=== PATIENT | female | born 1975 | race Caucasian/White ===

== ENCOUNTER 2017-01-10 23:23 | Emergency (ER) | payer OTHER ==
[~2017-01-10] VITALS: Ht 160 cm; Wt 126.9 kg
[~2017-01-10 23:23] MED LIST: ALUMSUS21 PO; METO-157 PO; PRLSR20 PO
[2017-01-10 23:26] VITALS: TEMP 36.5; Ht 160 cm; Wt 126.9 kg
[2017-01-10] MEDS ORDERED: METOCLOPRAMIDE HCL INJ 5 MG/ML 2 ML VIAL IV STA (23:50)
[2017-01-10] MEDS ORDERED: SODIUM CHLORIDE 0.9% 1000ML 1,000 ML IV STA (23:50)
[2017-01-10] MEDS ORDERED: FAMOTIDINE 20MG/5ML IV PUSH IV STA (23:50)
[2017-01-10] MEDS ORDERED: GLC/500 PO (23:52)
[2017-01-10] MEDS ORDERED: LACT1CAP6 PO (23:52)
--- NOTE | 2017-01-10 23:52 | EMERGENCY ROOM VISIT NOTE ---
History Report prepared by Yogesh: Vicky Thurman Under the Supervision of: Dr. Matt Spence M.D. First contact with patient: 23:30 Chief Complaint: ABDOMINAL PAIN Stated Complaint: STOMACH PAIN Nursing Triage Summary: pt c/o abd pain with burning in throat with n/v. History of Present Illness The patient is a 41 year old female who presents to the Emergency Room with complaints of persistent abdominal pain that started 2 days ago. The patient rates her pain 3/10 in severity. She states that she vomited and inhaled the vomit. She not is experiencing a burning in her lungs and stomach. She states she has a history of gastroparesis. Her GI doctor is Nubia Cox. The patient states she has not had a flare up in a long time. The patient is feeling nauseous. She denies any fever, chills, cough, shortness of breath, congestion, and urine or bowel changes. She denies any history of ulcers. The patient states she takes omeprazole every day. She also takes metformin to help regulate her menstrual cycle. Source of History: patient Onset: 2 hours ago Position: abdomen Symptom Intensity: 3/10 Quality: burning Timing: other (persistent) Associated Symptoms: + nausea, + vomiting, No fevers, No chills, No cough, No SOB, No diarrhea, No urinary symptoms Note: The patient denies any congestion. Review of Systems See HPI for pertinent positives and negatives. A total of ten systems were reviewed and were otherwise negative. Family History No pertinent family history Social History Smoking Status: Former Smoker Alcohol Use: occasionally Drug Use: none Marital Status: Housing Status: lives with family Current/Historical Medications Scheduled Lactobacillus (Probiotic), 1 CAP PO DAILY Metformin Hcl (Glucophage), 500 MG PO BID Omeprazole (Prilosec), 20 MG PO BID Scheduled PRN Aluminum Hydroxide-Mag Carb (Gaviscon), 1 DOSE PO QID PRN for epigastic distress Metoclopramide (Reglan), 10 MG PO Q6H PRN for Nausea Allergies Coded Allergies: No Known Allergies (Unverified , 01/10/17) Physical Exam Vital Signs Date Time Temp Pulse Resp B/P (MAP) Pulse Ox O2 Delivery O2 Flow Rate FiO2 01/11/17 02:09 90 18 133/81 100 01/10/17 23:26 36.5 103 18 167/99 97 Room Air Physical Exam GENERAL: Awake, alert, uncomfortable appearing, in no distress HENT: Normocephalic, atraumatic. Dry mucus membranes. EYES: Normal conjunctiva. Sclera non-icteric. NECK: Supple. No nuchal rigidity. FROM. No JVD. RESPIRATORY: Clear to auscultation. CARDIAC: Regular rate, normal rhythm. Extremities warm and well perfused. Pulses equal. ABDOMEN: Soft, non-distended. No tenderness to palpation. No rebound or guarding. No masses. Obese. RECTAL: Deferred. MUSCULOSKELETAL: Chest examination reveals no tenderness. The back is symmetrical on inspection without obvious abnormality. There is no CVA tenderness to palpation. No joint edema. LOWER EXTREMITIES: Calves are equal size bilaterally and non-tender. No edema. No discoloration. NEURO: Normal sensorium. No sensory or motor deficits noted. SKIN: No rash or jaundice noted. Medical Decision & Procedures ER Provider Diagnostic Interpretation: Radiology results as stated below per my review and radiologist interpretation: CHEST X-RAY: Normal mediastinal. No focal consolidation. Laboratory Results 01/11/17 00:00 Red Blood Count 4.35, Mean Corpuscular Volume 84.1, Mean Corpuscular Hemoglobin 27.8, Mean Corpuscular Hemoglobin Concent 33.1, Mean Platelet Volume 9.2, Neutrophils (%) (Auto) 59.5, Lymphocytes (%) (Auto) 32.4, Monocytes (%) (Auto) 5.9, Eosinophils (%) (Auto) 1.6, Basophils (%) (Auto) 0.4, Neutrophils # (Auto) 6.61, Lymphocytes # (Auto) 3.60, Monocytes # (Auto) 0.66, Eosinophils # (Auto) 0.18, Basophils # (Auto) 0.04 01/11/17 00:00 Test 01/10/17 00:00 01/11/17 00:00 01/11/17 01:13 Urine Color YELLOW Urine Appearance CLOUDY (CLEAR) Urine pH 6.0 (4.5-7.5) Urine Specific [place] 1.015 (1.000-1.030) Urine Protein NEG (NEG) Urine Glucose (UA) NEG (NEG) Urine Ketones NEG (NEG) Urine Occult Blood NEG (NEG) Urine Nitrite NEG (NEG) Urine Bilirubin NEG (NEG) Urine Urobilinogen NEG (NEG) Urine Leukocyte Esterase NEG (NEG) Urine WBC (Auto) 1-5 /hpf (0-5) Urine RBC (Auto) 0-4 /hpf (0-4) Urine Hyaline Casts (Auto) 1-5 /lpf (0-5) Urine Epithelial Cells (Auto) >30 /lpf (0-5) Urine Bacteria (Auto) 1+ (NEG) White Blood Count 11.11 K/uL (4.8-10.8) Red Blood Count 4.35 M/uL (4.2-5.4) Hemoglobin 12.1 g/dL (12.0-16.0) Hematocrit 36.6 % (37-47) Mean Corpuscular Volume 84.1 fL (80-100) Mean Corpuscular Hemoglobin 27.8 pg (25-34) Mean Corpuscular Hemoglobin Concent 33.1 g/dl (32-36) Platelet Count 324 K/uL (130-400) Mean Platelet Volume 9.2 fL (7.4-10.4) Neutrophils (%) (Auto) 59.5 % Lymphocytes (%) (Auto) 32.4 % Monocytes (%) (Auto) 5.9 % Eosinophils (%) (Auto) 1.6 % Basophils (%) (Auto) 0.4 % Neutrophils # (Auto) 6.61 K/uL (1.4-6.5) Lymphocytes # (Auto) 3.60 K/uL (1.2-3.4) Monocytes # (Auto) 0.66 K/uL (0.11-0.59) Eosinophils # (Auto) 0.18 K/uL (0-0.5) Basophils # (Auto) 0.04 K/uL (0-0.2) RDW Standard Deviation 46.7 fL (36.4-46.3) RDW Coefficient of Variation 15.1 % (11.5-14.5) Immature Granulocyte % (Auto) 0.2 % Immature Granulocyte # (Auto) 0.02 K/uL (0.00-0.02) Anion Gap 9.0 mmol/L (3-11) Est Creatinine Clear Calc Drug Dose 97.0 ml/min Estimated GFR () 81.6 Estimated GFR (Non- 70.4 BUN/Creatinine Ratio 14.4 (10-20) Calcium Level 8.8 mg/dl (8.5-10.1) Total Bilirubin 0.2 mg/dl (0.2-1) Direct Bilirubin < 0.1 mg/dl (0-0.2) Aspartate Amino Transf (AST/SGOT) 17 U/L (15-37) Alanine Aminotransferase (ALT/SGPT) 33 U/L (12-78) Alkaline Phosphatase 80 U/L (45-117) Total Protein 8.1 gm/dl (6.4-8.2) Albumin 3.7 gm/dl (3.4-5.0) Lipase 206 U/L (73-393) Urine Test NEG (NEG) Laboratory results reviewed by me Medications Administered Medications (Trade) Dose Ordered Sig/Abhijit Route Start Time Stop Time Status Last Admin Dose Admin Sodium Chloride 1,000 ml @ 999 mls/hr Q1H1M STAT IV 01/10/17 23:50 01/11/17 00:50 DC 01/11/17 00:07 999 MLS/HR Metoclopramide HCl (Reglan Inj) 10 mg NOW STAT IV 01/10/17 23:50 01/10/17 23:54 DC 01/11/17 00:07 10 MG Famotidine (Pepcid 20mg Iv Push) 20 mg ONE STAT IV 01/10/17 23:50 01/10/17 23:54 DC 01/11/17 00:07 20 MG Lidocaine HCl (Viscous Lidocaine 2% Soln) 20 ml STK-MED ONCE .ROUTE 01/11/17 01:25 01/11/17 01:26 DC 01/11/17 01:27 10 ML Al Hydroxide/Mg Hydroxide (Maalox Susp) 30 ml STK-MED ONCE .ROUTE 01/11/17 01:25 01/11/17 01:26 DC 01/11/17 01:27 30 ML ED Course 2330: The patient was evaluated in room C10. A complete history and physical exam was performed. 2350: Famotidine 20 mg IV, Reglan Inj 10 mg IV, Sodium Chloride 1000 ml @ 999 mls/hr IV. 0121: I reassessed the patient. I will administer fluids and Gi Cocktail. 0122: Gi Cocktail 24 ml PO. 0130: I reevaluated the patient. Discussed results and discharge instructions: She verbalized understanding and agreement. The patient is ready for discharge. Medical Decision I reviewed the patient's past medical history, medications, and the nursing notes as described above. Differential diagnosis includes but is not limited to: gastroparesis, gastritis , biliary ideology, aspiration, peptic ulcer. The patient is a 41 y/o woman with a pmhx of gastroparesis who presents to the ED with n/v and ?aspiration with burning in her throat per HPI. On arrival the patient appears uncomfortable but in NAD. Oropharynx is clear without edema or erythema. No stridor. Lungs CTAB. Abd soft nt/nd. CXR prelim interpretation without any gross infiltrates. Patient improved after IVF, zofran, pepcid, GI cocktail. Labs with WBC 11, nonspecific but otherwise unremarkable. Medication Reconcilliation Current Medication List: was personally reviewed by me Blood Pressure Screening Patient's blood pressure: Elevated blood pressure Blood pressure disposition: Elevated BP felt to be situational Impression Primary Impression: Nausea & vomiting Additional Impression: Gastroparesis Scribe Attestation The scribe's documentation has been prepared under my direction and personally reviewed by me in its entirety. I confirm that the note above accurately reflects all work, treatment, procedures, and medical decision making performed by me. Departure Information Dispostion Home / Self-Care Prescriptions Metoclopramide (Reglan) 10 Mg Tab 10 MG PO Q6H Y for Nausea, #6 TAB Prov: Matt Spence M.D. 01/11/17 Referrals Pratik Macias M.D. (PCP) Patient Instructions ED Nausea Vomiting, Gastroparesis, My [facility] Additional Instructions Please follow up with your primary care physician in the next 1-3 days for re- evaluation. Your symptoms were likely due to your gastroparesis and resolved with IV fluids and nausea medicine. Otherwise, your exam, chest xray, and lab results did not show signs of an emergent condition at this time. Symptoms of aspiration can sometimes be delayed however antibiotics are not recommended unless symptoms develop. If you begin to develop cough, congestion , fevers and chills do not hesitate to seek reevaluation. Reglan as needed for nausea. Return to the emergency department for worsening symptoms as described in the accompanying instructions. Problem Qualifiers
[2017-01-11 00:31] LABS: ALT/SGPT 33 U/L (12-78); BLOOD UREA NITROGEN 14 mg/dl (7-18); BUN/CREATININE RATIO 14.4 (10-20); CALCIUM 8.8 mg/dl (8.5-10.1); CARBON DIOXIDE 24 mmol/L (21-32); CHLORIDE 107 mmol/L (98-107); GLUCOSE 101 mg/dl (70-99); POTASSIUM 3.5 mmol/L (3.5-5.1); SODIUM 140 mmol/L (136-145)
[2017-01-11 00:34] LABS: ALKALINE PHOSPHATASE 80 U/L (45-117); AST/SGOT 17 U/L (15-37)
[2017-01-11 00:36] LABS: BASO % 0.4 %; BASO ABS # 0.04 K/uL (0-0.2); COMPLETE YES; EOS % 1.6 %; HEMATOCRIT 36.6 % (37-47); IG% 0.2 %; LYMPH % 32.4 %; MEAN CELL VOLUME 84.1 fL (80-100); MEAN CORPUSCULAR HEMOGLOBIN 27.8 pg (25-34); MEAN CORPUSCULAR HGB CONC 33.1 g/dl (32-36); MEAN PLATELET VOLUME 9.2 fL (7.4-10.4); MONO % 5.9 %; NEUT % 59.5 %; PLATELET COUNT 324 K/uL (130-400); RED BLOOD COUNT 4.35 M/uL (4.2-5.4); WHITE BLOOD COUNT 11.11 K/uL (4.8-10.8)
[2017-01-11 01:09] LABS: URINE APPEARANCE CLOUDY (CLEAR); URINE BILIRUBIN NEG (NEG); URINE COLOR YELLOW; URINE EPITHELIAL CELL AUTO >30 /lpf (0-5); URINE NITRITE NEG (NEG); URINE SPECIFIC GRAVITY 1.015 (1.000-1.030); UROBILINOGEN NEG (NEG); ZZUR CULT IF INDIC CLEAN CATCH YES
[2017-01-11 01:16] LABS: MANUAL MICROSCOPIC REQUIRED? NO; REVIEW REQ? NO
[2017-01-11] MEDS ORDERED: GI COCKTAIL PO STA (01:22)
[2017-01-11] MEDS ORDERED: ALUMINUM/MAGNESIUM SUSP 30 ML UDC ONE (01:25)
[2017-01-11] MEDS ORDERED: LIDOCAINE HCL 2% VISC SOLN 20 ML UDC ONE (01:25)
[2017-01-11] MEDS ORDERED: METO-157 PO (02:01)
[2017-01-11 02:09] VITALS: BP 133/81; PULSE 90; O2SAT 100
--- NOTE | 2017-01-11 06:56 | DIAGNOSTIC IMAGING REPORT ---
SINGLE VIEW CHEST CLINICAL HISTORY: Aspiration. FINDINGS: An AP, portable, upright chest radiograph is compared to study dated 03/08/2016. The examination is degraded by portable technique and patient rotation. The cardiomediastinal silhouette is unremarkable. The lungs and pleural spaces are clear. No pneumothorax is seen. The bony thorax is grossly intact. IMPRESSION: No active disease in the chest. Electronically signed by: Asher Toth M.D. 01/11/2017 6:55 AM Dictated Date/Time: 01/11/2017 6:54 AM
== END 2017-01-11 02:11 | disposition home or self-care (01) ==
LOC: C.EDB 23:23 → C.EDC 01-11 02:11
DX: K31.84 Gastroparesis (principal); Z87.891 Personal history of nicotine dependence; R03.0 Elevated blood-pressure reading, without diagnosis of hypertension

== ENCOUNTER 2018-11-15 21:57 | Observation (INO) ==
[2018-11-15 23:03] LABS: Basophils # (auto) 0.02 K/uL (0-0.2); Basophils % (auto) 0.2 %; Eosinophils # (auto) 0.13 K/uL (0-0.5); Eosinophils % (auto) 1.2 %; Hematocrit (blood only) 40.7 % (37-47); Immature Granulocytes # (auto) 0.03 K/uL (0.00-0.02); Immature Granulocytes % (auto) 0.3 %; Lymphocytes % (auto) 16.6 %; Mean Corpuscular Hgb Conc 34.4 g/dL (32-36); Mean Corpuscular Volume 87.5 fL (80-100); Mean Platelet Volume 10.2 fL (7.4-10.4); Monocytes # (auto) 0.66 K/uL (0.11-0.59); Monocytes % (auto) 6.1 %; Neutrophils # (auto) 8.18 K/uL (1.4-6.5); Neutrophils % (auto) 75.6 %; Platelet Count 287 K/uL (130-400); RDW Coefficient of Variation 14.4 % (11.5-14.5); RDW Standard Deviation 45.6 fL (36.4-46.3); Red Blood Count 4.65 M/uL (4.2-5.4); White Blood Count 10.82 K/uL (4.8-10.8)
[2018-11-15] MEDS ORDERED: ONDANSETRON INJ 2 MG/ML 2 ML VIAL IV STA ×2 (23:11→23:55)
[2018-11-15 23:15] LABS: INR 1.1 (0.9-1.1); Partial Thromboplastin Ratio 1.1; Partial Thromboplastin Time 28.6 Seconds (21.0-31.0); Prothrombin Time 10.9 Seconds (9.0-12.0)
[2018-11-15 23:21] LABS: Albumin Level 3.9 gm/dl (3.4-5.0); BUN Creatinine Ratio 12.4 (10-20); Blood Urea Nitrogen 12 mg/dl (7-18); Carbon Dioxide 27 mmol/L (21-32); Chloride 108 mmol/L (98-107); Est GFR (African American) 86.7; Est GFR (Non-African American) 74.8; Glucose 122 mg/dl (70-99); Potassium 3.6 mmol/L (3.5-5.1); Sodium 140 mmol/L (136-145)
[2018-11-15 23:27] LABS: Alanine Aminotransferase 76 U/L (12-78); Albumin Globulin Ratio 0.9 (0.9-2); Alkaline Phosphatase 125 U/L (45-117); Aspartate Aminotransferase 44 U/L (15-37); Bilirubin,Total 1.1 mg/dl (0.2-1); Globulin 4.4 gm/dl (2.5-4.0); Total Protein 8.3 gm/dl (6.4-8.2); Troponin I < 0.015 ng/ml (0-0.045)
[2018-11-15] MEDS ORDERED: SODIUM CHLORIDE 0.9% 1000ML 1,000 ML IV SCH (23:45)
[2018-11-15] MEDS ORDERED: MoRPHine SULFATE 10 MG/ML CARP/VIAL IV STA (23:55)
[2018-11-16] MEDS ORDERED: fentaNYL citrate 100 MCG/2 ML VIAL IV STA (01:21)
[2018-11-16] MEDS ORDERED: HYDROCODONE/ACETAMOPHEN 5/325MG TAB PO STA (01:21)
--- NOTE | 2018-11-16 01:44 | Emergency Department Note ---
Entered by Abby Sears acting as a scribe for Margot Anand DO History of Present Illness General Chief complaint: Chest Pain Stated complaint: EPIGASTIC PAIN, CHEST PAIN, BAND AROUND CHEST Time Seen by Provider: 11/15/18 23:49 Source: patient History of Present Illness Onset (ago): hour(s) 7 Location: abdomen (upper) Radiation: back and other (chest; right shoulder ) Pain Consistency: + other (persistent ) Maximum Pain Intensity: 9 Quality: + other (tightness ) Associated symptoms: + nausea/vomiting and + other (positive bloated; negative trouble with urination; negative difficulty with bowel movements or passing gas; negative dizziness; negative lightheadedness); no fever/chills and no shortness of breath The patient is a 43 year old female with PMHx of gastroparesis, gallstones, and acid reflux who presents to the Emergency Room with complaints of persistent upper abdominal pain that began at about 1700, about 7 hours prior to arrival. She describes her pain as tightness. The patient states that her pain radiates up the center of her chest, to her right shoulder, and around to her back. She states that this pain began suddenly, and reports nausea and vomiting during this time. She states that she ate dinner tonight, but states that the food did not exacerbate her pain. The patient states that she it feels as though she is b loated. She denies trouble with urination, difficulty with bowel movements or passing gas, fever, chills, shortness of breath, dizziness, and lightheadedness. The patient states that she has a history of gastrointestinal issues, and states that she takes Prilosec twice a day. The patient denies recent diet changes and being around anyone else that was sick with similar symptoms. The patient states that she recently had a colonoscopy and endoscopy in June that was normal. No recent increase in heartburn. She denies any family history of gallbladder issues, but states that she has a family history of heart problems. Home Medications Home Medications Medication Instructions Recorded Confirmed Type Probiotic and Acidophilus 1 cap PO QAM 06/14/18 11/16/18 History metformin 500 mg PO BID 06/14/18 11/16/18 History metoclopramide HCl [Reglan] 10 mg PO DAILY PRN 06/14/18 11/16/18 History omeprazole 20 mg PO BID 06/14/18 11/16/18 History ondansetron 4 mg PO Q8H PRN 06/14/18 11/16/18 History sennosides [senna] 1 - 2 tab PO DAILY PRN 06/14/18 11/16/18 History docusate sodium [Colace] 100 mg PO DAILY 11/16/18 11/16/18 History ferrous sulfate 325 mg PO DAILY 11/16/18 11/16/18 History propranolol 20 mg PO BID 11/16/18 11/16/18 History oxycodone-acetaminophen 1 tab PO Q4H PRN #18 tab 11/17/18 Rx Allergies Allergy/AdvReac Type Severity Reaction Status Date / Time No Known Allergies Allergy Verified 06/23/18 10:59 Past Med/Surg History Medical History SVT (supraventricular tachycardia) Anxiety no meds Chronic back pain GERD (gastroesophageal reflux disease) Gastroparesis Obesity, morbid, BMI 50 or higher PCOS (polycystic ovarian syndrome) reason for metformin Surgical History History of tooth extraction History of wisdom tooth extraction under local Family History Father Family history of diabetes mellitus Other No family history of adverse response to anesthesia Social History Preferred Language: Kazakh Communication Ability: Effective Psychiatric Aide Instructor Required: No Beliefs That Will Affect Care: None Current Living Situation: Spouse Current Living Situation Comment: Home with spouse Other Information That Helps Us Care for You: No Feels Safe at Home: Yes Safety Concerns: Feels Safe At This Time Smoking Status: Never smoker Do You Dip or Chew Tobacco: No ; Second Hand Exposure: No ; Tobacco Cessation Education Requested by Patient: No Hx Alcohol Use: No Hx Substance Use: No Review of Systems See HPI for pertinent positives & negatives. and A total of 10 systems reviewed and were otherwise negative Physical Exam Vital Signs Vital Signs - 24 hr 11/15/18 22:05 11/15/18 22:49 11/15/18 23:00 Temperature 97.9 F Temperature Source Oral Sepsis Recent Fever Within 48 Hours No Sepsis Action Taken by Nursing No Action Required Pulse Rate 77 74 Pulse Rate [Apical] Pulse Rate from SpO2 Sensor 73 Respiratory Rate 21 20 Respiratory Effort / Characteristics Respiratory Depth Blood Pressure 126/80 121/80 Blood Pressure [Left Arm] Blood Pressure Mean 95 93 Blood Pressure Mean [Left Arm] Blood Pressure Position Sitting Pulse Oximetry 97 97 Oxygen Delivery Method Room Air Room Air 11/15/18 23:12 11/15/18 23:18 11/15/18 23:30 Temperature Temperature Source Sepsis Recent Fever Within 48 Hours Sepsis Action Taken by Nursing Pulse Rate 78 Pulse Rate [Apical] 76 Pulse Rate from SpO2 Sensor 78 Respiratory Rate 12 14 Respiratory Effort / Characteristics Non-Labored Respiratory Depth Normal Blood Pressure 126/69 Blood Pressure [Left Arm] 121/80 Blood Pressure Mean 88 Blood Pressure Mean [Left Arm] 93 Blood Pressure Position Pulse Oximetry 99 97 98 Oxygen Delivery Method Room Air Room Air 11/16/18 00:00 11/16/18 00:47 11/16/18 01:00 Temperature Temperature Source Sepsis Recent Fever Within 48 Hours Sepsis Action Taken by Nursing Pulse Rate 71 66 Pulse Rate [Apical] 66 Pulse Rate from SpO2 Sensor 72 67 Respiratory Rate 15 18 10 L Respiratory Effort / Characteristics Non-Labored Respiratory Depth Normal Blood Pressure 117/60 132/71 Blood Pressure [Left Arm] 125/73 Blood Pressure Mean 79 91 Blood Pressure Mean [Left Arm] 90 Blood Pressure Position Pulse Oximetry 97 94 96 Oxygen Delivery Method Room Air 11/16/18 01:30 Temperature Temperature Source Sepsis Recent Fever Within 48 Hours Sepsis Action Taken by Nursing Pulse Rate 68 Pulse Rate [Apical] Pulse Rate from SpO2 Sensor 69 Respiratory Rate 15 Respiratory Effort / Characteristics Respiratory Depth Blood Pressure 131/78 Blood Pressure [Left Arm] Blood Pressure Mean 95 Blood Pressure Mean [Left Arm] Blood Pressure Position Pulse Oximetry 97 Oxygen Delivery Method GENERAL: alert, uncomfortable appearing, well nourished, no distress, non-toxic EYE EXAM: normal conjunctiva, PERRL and EOM's grossly intact OROPHARYNX: no exudate, no erythema, lips, buccal mucosa, and tongue normal and mucous membranes are moist NECK: supple, no nuchal rigidity, no adenopathy, non-tender LUNGS: Clear to auscultation. No wheezes, rhonchi, rales. Normal chest wall mechanics HEART: no murmurs, S1 normal and S2 normal ABDOMEN: Epigastric tenderness to palpation. Abdomen soft, normo-active bowel sounds, no masses, no rebound or guarding. BACK: Back is symmetrical on inspection and there is no deformity, no midline tenderness, no CVA tenderness. SKIN: no rashes and no bruising UPPER EXTREMITIES: upper extremities are grossly normal. FROM, nml pulses b/l. LOWER EXTREMITIES: No pitting edema. FROM, nml pulses b/l. NEURO EXAM: Normal sensorium, cranial nerves II-XII grossly intact, normal speech, no gross weakness of arms, no gross weakness of legs. Course 2351: Past medical records reviewed. The patient was evaluated in room B2. A complete history and physical exam was performed. 0122: Upon reevaluation, the patient states that her pain is better but is not completely relieved. The patient was updated and we will see if we can control her symptoms on oral medications. 0215: Upon reevaluation, the patient is experiencing worsening pain. 0219: I discussed the case with Dr. Dee-General Surgery who accepts the patient for further evaluation and surgery. Administered Medications Docusate Sodium (Colace) 100 mg PO DAILY JUAN Stop: 12/17/18 08:59 Last Admin: 11/16/18 21:16 Dose: 100 mg Documented by: [id number] Ferrous Sulfate (Feosol) 325 mg PO DAILY JUAN Stop: 12/17/18 08:59 Last Admin: 11/17/18 08:44 Dose: Not Given Documented by: [id number] Hydromorphone HCl (Dilaudid) 0.5 mg IV Q2H PRN PRN Reason: Pain Stop: 11/30/18 03:40 Last Admin: 11/17/18 08:18 Dose: 0.5 mg Documented by: [id number] Admin: 11/17/18 01:43 Dose: 0.5 mg Documented by: [id number] Admin: 11/16/18 21:12 Dose: 0.5 mg Documented by: [id number] Sodium Chloride (Nss 1000ml) 1,000 mls @ 100 mls/hr IV .Q10H JUAN Stop: 12/16/18 03:40 Last Admin: 11/17/18 01:43 Dose: 100 mls/hr Documented by: [id number] Infusion: 11/17/18 01:43 Dose: 100 mls/hr Documented by: [id number] Admin: 11/16/18 17:24 Dose: 100 mls/hr Documented by: [id number] Infusion: 11/16/18 13:59 Dose: 100 mls/hr Documented by: [id number] Admin: 11/16/18 03:59 Dose: 100 mls/hr Documented by: [id number] Promethazine HCl 12.5 mg/ (Sodium Chloride) 50.5 mls @ 202 mls/hr IV Q6H PRN PRN Reason: Nausea And Vomiting Stop: 12/16/18 09:07 Last Infusion: 11/16/18 15:22 Dose: 0 mls/hr Documented by: [id number] Admin: 11/16/18 15:07 Dose: 202 mls/hr Documented by: [id number] Infusion: 11/16/18 09:31 Dose: 0 mls/hr Documented by: [id number] Admin: 11/16/18 09:16 Dose: 202 mls/hr Documented by: [id number] Lactobacillus Acidophilus (Floranex) 4 tab PO DAILY JUAN Stop: 12/17/18 08:59 Last Admin: 11/17/18 08:44 Dose: Not Given Documented by: [id number] Ondansetron HCl (Zofran) 4 mg IV Q6H PRN PRN Reason: Nausea Stop: 12/16/18 03:40 Last Admin: 11/17/18 08:18 Dose: 4 mg Documented by: [id number] Admin: 11/17/18 01:43 Dose: 4 mg Documented by: [id number] Admin: 11/16/18 19:48 Dose: 4 mg Documented by: [id number] Admin: 11/16/18 03:59 Dose: 4 mg Documented by: [id number] Oxycodone/Acetaminophen (Percocet 5mg/325mg) 1 tab PO Q4H PRN PRN Reason: Pain Stop: 11/30/18 16:21 Last Admin: 11/17/18 06:38 Dose: 1 tab Documented by: [id number] Admin: 11/16/18 19:48 Dose: 1 tab Documented by: [id number] Pantoprazole Sodium (Protonix) 40 mg PO BID JUAN Stop: 12/16/18 20:59 Last Admin: 11/17/18 08:44 Dose: Not Given Documented by: [id number] Admin: 11/16/18 21:11 Dose: 40 mg Documented by: [id number] Propranolol HCl (Inderal) 20 mg PO BID JUAN Stop: 12/16/18 20:59 Last Admin: 11/17/18 08:44 Dose: Not Given Documented by: [id number] Admin: 11/16/18 21:11 Dose: 20 mg Documented by: [id number] Sennosides (Senokot) 8.6 mg PO DAILY PRN PRN Reason: Constipation Stop: 12/16/18 16:21 Last Admin: 11/16/18 21:16 Dose: 8.6 mg Documented by: [id number] Discontinued Medications Hydrocodone Bitart/Acetaminophen ([place] 5/325) 1 tab PO NOW STA Stop: 11/16/18 01:22 Last Admin: 11/16/18 01:37 Dose: 1 tab Documented by: [id number] Bacitracin (Bacitracin) Confirm Administered Dose 45 appln .ROUTE .STK-MED ONE Stop: 11/16/18 11:34 Last Admin: 11/16/18 13:58 Dose: 45 appln Documented by: [id number] Bupivacaine HCl (Marcaine 0.5% Mpf) Confirm Administered Dose 30 ml .ROUTE .STK- MED ONE Stop: 11/16/18 11:34 Last Admin: 11/16/18 14:01 Dose: 20 ml Documented by: [id number] Cefazolin Sodium (Ancef 3000mg) Confirm Administered Dose 3,000 mg IV .STK-MED ONE Stop: 11/16/18 12:05 Last Admin: 11/16/18 12:20 Dose: Not Given Documented by: [id number] Fentanyl Citrate (Fentanyl Citrate) 100 mcg IV NOW STA Stop: 11/16/18 01:22 Last Admin: 11/16/18 01:40 Dose: Not Given Documented by: [id number] Fentanyl Citrate (Fentanyl Citrate) 50 mcg IV Q5M PRN PRN Reason: PACU Use Only-Pain Stop: 11/16/18 17:22 Last Admin: 11/16/18 14:45 Dose: 50 mcg Documented by: [id number] Admin: 11/16/18 14:40 Dose: 50 mcg Documented by: [id number] Hydromorphone HCl (Dilaudid) 0.25 mg IV Q5M PRN PRN Reason: PACU Use Only-Pain Stop: 11/16/18 17:22 Last Admin: 11/16/18 15:07 Dose: 0.25 mg Documented by: [id number] Admin: 11/16/18 15:02 Dose: 0.25 mg Documented by: [id number] Admin: 11/16/18 14:57 Dose: 0.25 mg Documented by: [id number] Admin: 11/16/18 14:52 Dose: 0.25 mg Documented by: [id number] Sodium Chloride (Nss 1000ml) 1,000 mls @ 125 mls/hr IV .Q8H JUAN Stop: 12/15/18 23:44 Last Infusion: 11/16/18 02:04 Dose: 0 mls/hr Documented by: [id number] Admin: 11/16/18 00:09 Dose: 125 mls/hr Documented by: [id number] Famotidine 20 mg/ Syringe 5 mls @ 2.5 mls/min IV DAILY JUAN Stop: 12/16/18 08:59 Last Admin: 11/16/18 08:44 Dose: 2.5 mls/min Documented by: [id number] Cefazolin Sodium (Ancef 3000mg) 72.5 mls @ 130 mls/hr IV PREOP ONE Stop: 11/16/18 12:26 Last Infusion: 11/16/18 12:49 Dose: 0 mls/hr Documented by: [id number] Admin: 11/16/18 12:15 Dose: 130 mls/hr Documented by: [id number] Cefazolin Sodium (Ancef 3000mg) 72.5 mls @ 130 mls/hr IV PREOP ONE Stop: 11/16/18 12:49 Last Admin: 11/16/18 12:19 Dose: Not Given Documented by: [id number] Ketorolac Tromethamine (Toradol (For Or Use Only)) 30 mg IV ONE ONE Stop: 11/16/18 15:24 Last Admin: 11/16/18 15:29 Dose: 30 mg Documented by: [id number] Ketorolac Tromethamine (Toradol) Confirm Administered Dose 30 mg .ROUTE .STK-MED ONE Stop: 11/16/18 15:28 Last Admin: 11/16/18 16:26 Dose: Not Given Documented by: [id number] Lidocaine HCl (Xylocaine 1% (Local)) Confirm Administered Dose 20 ml .ROUTE .STK-MED ONE Stop: 11/16/18 11:34 Last Admin: 11/16/18 14:02 Dose: 20 ml Documented by: [id number] Morphine Sulfate (Morphine Sulfate) 6 mg IV NOW STA Stop: 11/15/18 23:56 Last Admin: 11/16/18 00:08 Dose: 6 mg Documented by: [id number] Morphine Sulfate (Morphine Sulfate) 6 mg IV NOW STA Stop: 11/16/18 02:16 Last Admin: 11/16/18 02:19 Dose: 6 mg Documented by: [id number] Ondansetron HCl (Zofran) 4 mg IV NOW STA Stop: 11/15/18 23:12 Last Admin: 11/15/18 23:15 Dose: 4 mg Documented by: [id number] Ondansetron HCl (Zofran) 4 mg IV NOW STA Stop: 11/15/18 23:56 Last Admin: 11/16/18 00:08 Dose: 4 mg Documented by: [id number] Ondansetron HCl (Zofran) 4 mg IV ONCE PRN PRN Reason: PACU Use Only-Nausea/Vomiting Stop: 11/16/18 17:22 Last Admin: 11/16/18 14:40 Dose: 4 mg Documented by: [id number] Medical Decision Making Differential Diagnosis Differential diagnoses includes but is not limited to gastritis, peptic ulcer disease, GERD, gallbladder disease, pancreatitis, small bowel obstruction, acute coronary syndrome, pericarditis, ischemic bowel, irritable bowel disease, irritable bowel syndrome, appendicitis, diverticulitis, malignancy, hernia, urinary tract infection, torsion, /ectopic , perforation, trauma, infectious. Medical Records Attestation: I reviewed the patient's medical records. Home Medications Current Medication List: was personally reviewed by me Laboratory Data Attestation: I reviewed the patient's lab results. Result diagrams: 11/17/18 06:19 11/17/18 06:19 Lab Results 11/15/18 11/15/18 11/15/18 Range/Units 22:50 22:50 22:50 WBC 10.82 H (4.8-10.8) K/uL RBC 4.65 (4.2-5.4) M/uL Hgb 14.0 (12.0-16.0) g/dL Hct 40.7 (37-47) % MCV 87.5 (80-100) fL MCH 30.1 (25-34) pg MCHC 34.4 (32-36) g/dL RDW Std Deviation 45.6 (36.4-46.3) fL RDW Coeff of Saige 14.4 (11.5-14.5) % Plt Count 287 (130-400) K/uL MPV 10.2 (7.4-10.4) fL Immature Gran % (Auto) 0.3 % Neut % (Auto) 75.6 % Lymph % (Auto) 16.6 % [place] % (Auto) 6.1 % Eos % (Auto) 1.2 % Baso % (Auto) 0.2 % Immature Gran # (Auto) 0.03 H (0.00-0.02) K/uL Neut # (Auto) 8.18 H (1.4-6.5) K/uL Lymph # (Auto) 1.80 (1.2-3.4) K/uL [place] # (Auto) 0.66 H (0.11-0.59) K/uL Eos # (Auto) 0.13 (0-0.5) K/uL Baso # (Auto) 0.02 (0-0.2) K/uL PT 10.9 (9.0-12.0) Seconds INR 1.1 (0.9-1.1) APTT 28.6 (21.0-31.0) Seconds PTT Ratio 1.1 D-Dimer (0-500) ug/L FEU Sodium 140 (136-145) mmol/L Potassium 3.6 (3.5-5.1) mmol/L Chloride 108 H (98-107) mmol/L Carbon Dioxide 27 (21-32) mmol/L Anion Gap 4.0 (3-11) BUN 12 (7-18) mg/dl Creatinine 0.94 (0.6-1.2) mg/dl Est Cr Clr Drug Dosing 102.0 ml/min Est GFR ( Amer) 86.7 Est GFR (Non-Af Amer) 74.8 BUN/Creatinine Ratio 12.4 (10-20) Glucose 122 H (70-99) mg/dl Calcium 9.0 (8.5-10.1) mg/dl Total Bilirubin 1.1 H (0.2-1) mg/dl AST 44 H (15-37) U/L ALT 76 (12-78) U/L Alkaline Phosphatase 125 H (45-117) U/L Troponin I < 0.015 (0-0.045) ng/ml Total Protein 8.3 H (6.4-8.2) gm/dl Albumin 3.9 (3.4-5.0) gm/dl Globulin 4.4 H (2.5-4.0) gm/dl Albumin/Globulin Ratio 0.9 (0.9-2) Lipase 137 (73-393) U/L 11/15/18 Range/Units 22:50 WBC (4.8-10.8) K/uL RBC (4.2-5.4) M/uL Hgb (12.0-16.0) g/dL Hct (37-47) % MCV (80-100) fL MCH (25-34) pg MCHC (32-36) g/dL RDW Std Deviation (36.4-46.3) fL RDW Coeff of Saige (11.5-14.5) % Plt Count (130-400) K/uL MPV (7.4-10.4) fL Immature Gran % (Auto) % Neut % (Auto) % Lymph % (Auto) % [place] % (Auto) % Eos % (Auto) % Baso % (Auto) % Immature Gran # (Auto) (0.00-0.02) K/uL Neut # (Auto) (1.4-6.5) K/uL Lymph # (Auto) (1.2-3.4) K/uL [place] # (Auto) (0.11-0.59) K/uL Eos # (Auto) (0-0.5) K/uL Baso # (Auto) (0-0.2) K/uL PT (9.0-12.0) Seconds INR (0.9-1.1) APTT (21.0-31.0) Seconds PTT Ratio D-Dimer 510 H* (0-500) ug/L FEU Sodium (136-145) mmol/L Potassium (3.5-5.1) mmol/L Chloride (98-107) mmol/L Carbon Dioxide (21-32) mmol/L Anion Gap (3-11) BUN (7-18) mg/dl Creatinine (0.6-1.2) mg/dl Est Cr Clr Drug Dosing ml/min Est GFR ( Amer) Est GFR (Non-Af Amer) BUN/Creatinine Ratio (10-20) Glucose (70-99) mg/dl Calcium (8.5-10.1) mg/dl Total Bilirubin (0.2-1) mg/dl AST (15-37) U/L ALT (12-78) U/L Alkaline Phosphatase (45-117) U/L Troponin I (0-0.045) ng/ml Total Protein (6.4-8.2) gm/dl Albumin (3.4-5.0) gm/dl Globulin (2.5-4.0) gm/dl Albumin/Globulin Ratio (0.9-2) Lipase (73-393) U/L Imaging Data Attestation: I personally reviewed and interpreted this imaging study as follows: My Impression: 1V CHEST X-RAY: No cardiomegaly, no effusions, no wide mediastinum, no focal consolidation, no acute pulmonary edema. Radiologist's Impression: Radiology results as stated below per my review and the radiologist's interpretation: US RUQ: Limited by body habitus. Pancreas obscured. Cholelithiasis along with possible sludge. Normal gallbladder wall thickness. Sonographic Camacho's sign could not be assessed secondary to pain medication. Visualized CBD normal caliber. Liver is prominent in size with increased echogenicity. Measures about 18 cm. Suspected liver cysts. Suspected complex cyst in the left hepatic lobe with central echogenicity similar in appearance to previous exam. Example image 1024 current exam versus image 2816 of prior. No right hydronephrosis. Radiologist: Herb Steven M.D. Study ready at 00:56 and initial results transmitted at 01:01. ECG Data Attestation: I personally reviewed and interpreted this ECG as follows: Indication: abdominal pain Rate (beats per minute): 66 Rhythm: sinus rhythm Findings: + other (normal axis; normal intervals); no PAC, no PVC, no ST depression, no ST elevation, no acute ischemic change and no ectopy Blood Pressure Blood Pressure Findings: Normal blood pressure MDM Narrative Patient here uncomfortable appearing and found to have cholelithiasis which is previously known. No evidence of acute cholecystitis on ultrasound. Patient's other labs reassuring, very mild elevation noted of LFTs, and white blood cell count top normal. We were unable to control patient's pain without the use of I V narcotics. Due to likely biliary colic and persistent pain, case discussed with general surgeon on-call for additional evaluation and management. I do not suspect ACS, PE, dissection, ascending cholangitis, perforation, GI bleed. Very slight elevation of d-dimer likely secondary to inflammatory changes of evolving cholecystitis. I do not suspect mesenteric ischemia, bowel obstruction, coliti s. Patient and were made aware of all results and were in agreement with plan. Impression & Plan Acute epigastric pain, Atypical chest pain, Cholelithiases, Biliary colic Discharge Plan Visit Data *Final* Discharge Date/Time: 11/16/18 03:31 Chief Complaint: Chest Pain Stated Complaint: EPIGASTIC PAIN, CHEST PAIN, BAND AROUND CHEST ED Provider: Margot Anand Discharge Problem: Acute epigastric pain, Atypical chest pain, Cholelithiases, Biliary colic Patient Disposition: Admitted As Inpatient Condition: Good Discharge Instructions Interventions: ED Discharge Assessment Last Done: 11/16/18 03:31 Discharge Problem: Cholelithiases Qualifiers: Cholelithiasis location: gallbladder Cholecystitis presence: without cholecystitis Biliary obstruction: without biliary obstruction Qualified Code(s): K80.20 - Calculus of gallbladder without cholecystitis without o bstruction The scribe's documentation has been prepared under my direction and personally reviewed by me in its entirety. I confirm that the note above accurately reflects all work, treatment, procedures, and medical decision making performed by me.
[2018-11-16 01:45] LABS: D Dimer 510 ug/L FEU (0-500)
[2018-11-16] MEDS ORDERED: MoRPHine SULFATE 10 MG/ML CARP/VIAL IV STA (02:15)
[2018-11-16] MEDS: SODIUM CHLORIDE 0.9% 1000ML 1,000 ML IV SCH ×2 (03:59→17:24)
[2018-11-16] MEDS: ONDANSETRON INJ 2 MG/ML 2 ML VIAL IV PRN ×2 (03:59→19:48)
--- NOTE | 2018-11-16 06:33 | XRay Report ---
XR chest 1V portable HISTORY: 43 years-old Female chest pain acute atypical chest pain COMPARISON: Chest radiograph 01/11/2017 and 03/08/2016 TECHNIQUE: Portable AP view of the chest FINDINGS: Cardiomediastinal and hilar silhouettes are within normal limits. There is no pneumothorax, pleural e ffusion, focal airspace consolidation or overt pulmonary edema. Small hiatal hernia. Bones appear rasta ssly intact. IMPRESSION: 1. No acute process. 2. Small hiatal hernia. The above report was generated using voice recognition software. It may contain grammatical, syntax o r spelling errors. Electronically signed by: Glenn Knight M.D. 11/16/2018 6:32 AM
--- NOTE | 2018-11-16 06:51 | Ultrasound Report ---
US gallbladder HISTORY: 43 years-old Female epigastric pain, known stones acute epigastric abdominal pain COMPARISON: Right upper quadrant abdominal ultrasound 03/08/2016 TECHNIQUE: Multiple real time sonographic images of the abdominal right upper quadrant were obtained assessing grayscale appearance and color flow FINDINGS: Study is limited secondary to patient body habitus and obscuring bowel gas. The visualized pancreas a ppears unremarkable. There are a few scattered hypoechoic foci throughout the liver suggestive of pro bable cysts. There is a 1.5 cm hypoechoic focus suggestive of probable cyst with calcified internal s eptation noted within the left hepatic lobe, unchanged. Increased echogenicity of the liver suggests hepatic steatosis. Mildly contracted gallbladder with gallbladder wall measuring in the upper limits of normal at 3 mm. Shadowing cholelithiasis with gallbladder sludge. No pericholecystic fluid. Sonogr aphic Camacho sign was unable to be assessed secondary to recent pain medication administered to the p atient. Normal common bile duct, 3 mm. Imaged right kidney is unremarkable without hydronephrosis. IMPRESSION: 1. Partially contracted gallbladder with cholelithiasis and gallbladder sludge. No definite sonograph ic evidence of acute cholecystitis. 2. No biliary ductal dilation. 3. Hepatic steatosis. The above report was generated using voice recognition software. It may contain grammatical, syntax o r spelling errors. Electronically signed by: Glenn Knight M.D. 11/16/2018 6:50 AM
[2018-11-16 07:19] LABS: Albumin Globulin Ratio 0.9 (0.9-2); Albumin Level 3.3 gm/dl (3.4-5.0); BUN Creatinine Ratio 10.8 (10-20); Bilirubin,Total 0.8 mg/dl (0.2-1); Calcium 8.1 mg/dl (8.5-10.1); Creatinine Clr Calc Pharmacy 117.9 ml/min; Est GFR (African American) 105.4; Est GFR (Non-African American) 90.9; Globulin 3.7 gm/dl (2.5-4.0); Potassium 4.2 mmol/L (3.5-5.1)
[2018-11-16] MEDS ORDERED: FAMOTIDINE 20 MG in SYRINGE 3 ML IV SCH (09:00)
--- NOTE | 2018-11-16 09:03 | History & Physical Report ---
Date of Service November 16, 2018 Assessment & Plan (1) Cholelithiases: This patient has right upper quadrant pain with cholelithiasis. There is also some epigastric component with nausea. Her bilirubin which was mildly elevated yesterday has returned back to normal but her AST and ALT are elevated. She has no risk factors for hepatitis. I feel that this patient most likely needs a cholecystectomy. I discussed that with her. I discussed the laparoscopic procedure and possible need to convert to an open procedure. We discussed some of the possible complications associated with this. I answered her questions. A family member was also present and I answered his questions as well. History of Present Illness Chief Complaint: Right upper quadrant pain Primary Care Provider: Pratik Macias MD This is a 43-year-old female who presented to the emergency room with pain centered in the epigastrium and right upper quadrant. It began at 5:00 last night. She had eaten just a small amount of baked potato. The pain is sharp. It radiates around to her back on occasion. Does not radiate into her shoulder. There are some reflux symptoms with it and she does have a history of reflux but she never has this kind of pain with it. She has nausea and had vomiting last night. She continues to have nausea. She has not had a change in her bowel habits. There is no melena or hematochezia. She denies dysuria and hematuria. She had one episode of discomfort like this about 5 years ago. At that time was also felt to be related to cholelithiasis but they did not opt for surgery at that time. Allergies Allergy/AdvReac Type Severity Reaction Status Date / Time No Known Allergies Allergy Verified 06/23/18 10:59 Home Medications Home Medications Medication Instructions Recorded Confirmed Type Probiotic and Acidophilus 1 cap PO QAM 06/14/18 11/16/18 History metformin 500 mg PO BID 06/14/18 11/16/18 History metoclopramide HCl [Reglan] 10 mg PO DAILY PRN 06/14/18 11/16/18 History omeprazole 20 mg PO BID 06/14/18 11/16/18 History ondansetron 4 mg PO Q8H PRN 06/14/18 11/16/18 History sennosides [senna] 1 - 2 tab PO DAILY PRN 06/14/18 11/16/18 History metoprolol succinate 12.5 mg PO BID 06/23/18 11/16/18 History docusate sodium [Colace] 100 mg PO DAILY 11/16/18 11/16/18 History ferrous sulfate 325 mg PO DAILY 11/16/18 11/16/18 History propranolol 20 mg PO BID 11/16/18 11/16/18 History Past Med/Surg History Medical History Anxiety no meds Chronic back pain GERD (gastroesophageal reflux disease) Gastroparesis Obesity, morbid, BMI 50 or higher PCOS (polycystic ovarian syndrome) reason for metformin Surgical History History of tooth extraction History of wisdom tooth extraction under local Family History Father Family history of diabetes mellitus Other No family history of adverse response to anesthesia Social History Preferred Language: [place] Communication Ability: Effective System Analyst Required: No Beliefs That Will Affect Care: None Current Living Situation: Spouse Current Living Situation Comment: Home with spouse Other Information That Helps Us Care for You: No Feels Safe at Home: Yes Safety Concerns: Feels Safe At This Time Smoking Status: Never smoker Do You Dip or Chew Tobacco: No ; Second Hand Exposure: No ; Tobacco Cessation Education Requested by Patient: No Hx Alcohol Use: No Hx Substance Use: No Review of Systems Review of Systems: All systems reviewed & are unremarkable except as noted in HPI & below Physical Exam Constitutional: + obese; no acute distress Neck: trachea midline Respiratory: normal respiratory effort, lungs clear to auscultation Cardiovascular: Rate/Rhythm: regular rate and regular rhythm Gastrointestinal (Abdomen): Inspection/Auscultation: abdomen not distended Percussion/Palpation: + abdomen tender (Mild tenderness to deep palpation in the right subcostal region) and abdomen soft Skin: no rashes, warm and dry Lymphatic: no cervical lymphadenopathy Results & Data Vital Signs (Past 12 Hours) Vital Signs Temp Pulse Pulse Pulse Resp BP BP 11/16/18 07:45 36.5 C 57 L 16 95/59 L 11/16/18 03:42 36.6 C 58 L 18 125/81 11/16/18 03:00 66 13 104/62 11/16/18 02:30 70 15 114/63 11/16/18 02:00 70 14 120/66 11/16/18 01:30 68 15 131/78 11/16/18 01:00 66 10 L 132/71 11/16/18 00:47 66 18 125/73 11/16/18 00:00 71 15 117/60 11/15/18 23:30 78 14 126/69 11/15/18 23:18 76 12 121/80 11/15/18 23:12 11/15/18 23:00 74 20 121/80 11/15/18 22:05 36.6 C 77 21 126/80 Pulse Ox 11/16/18 07:45 97 11/16/18 03:42 97 11/16/18 03:00 97 11/16/18 02:30 95 11/16/18 02:00 96 11/16/18 01:30 97 11/16/18 01:00 96 11/16/18 00:47 94 11/16/18 00:00 97 11/15/18 23:30 98 11/15/18 23:18 97 11/15/18 23:12 99 11/15/18 23:00 97 11/15/18 22:05 97 Laboratory Results 11/16/18 11/15/18 11/15/18 Range/Units 06:11 22:50 22:50 WBC (4.8-10.8) K/uL RBC (4.2-5.4) M/uL Hgb (12.0-16.0) g/dL Hct (37-47) % MCV (80-100) fL MCH (25-34) pg MCHC (32-36) g/dL RDW Std Deviation (36.4-46.3) fL RDW Coeff of Saige (11.5-14.5) % Plt Count (130-400) K/uL MPV (7.4-10.4) fL Immature Gran % (Auto) % Neut % (Auto) % Lymph % (Auto) % Pitkin % (Auto) % Eos % (Auto) % Baso % (Auto) % Immature Gran # (Auto) (0.00-0.02) K/uL Neut # (Auto) (1.4-6.5) K/uL Lymph # (Auto) (1.2-3.4) K/uL Pitkin # (Auto) (0.11-0.59) K/uL Eos # (Auto) (0-0.5) K/uL Baso # (Auto) (0-0.2) K/uL PT (9.0-12.0) Seconds INR (0.9-1.1) APTT (21.0-31.0) Seconds PTT Ratio D-Dimer 510 H* (0-500) ug/L FEU Sodium 143 140 (136-145) mmol/L Potassium 4.2 D 3.6 (3.5-5.1) mmol/L Chloride 113 H 108 H (98-107) mmol/L Carbon Dioxide 25 27 (21-32) mmol/L Anion Gap 5.0 4.0 (3-11) BUN 9 12 (7-18) mg/dl Creatinine 0.80 0.94 (0.6-1.2) mg/dl Est Cr Clr Drug Dosing 117.9 102.0 ml/min Est GFR ( Amer) 105.4 86.7 Est GFR (Non-Af Amer) 90.9 74.8 BUN/Creatinine Ratio 10.8 12.4 (10-20) Glucose 111 H 122 H (70-99) mg/dl Calcium 8.1 L 9.0 (8.5-10.1) mg/dl Total Bilirubin 0.8 1.1 H (0.2-1) mg/dl AST 247 H 44 H (15-37) U/L ALT 251 H 76 (12-78) U/L Alkaline Phosphatase 155 H 125 H (45-117) U/L Troponin I < 0.015 (0-0.045) ng/ml Total Protein 7.0 8.3 H (6.4-8.2) gm/dl Albumin 3.3 L 3.9 (3.4-5.0) gm/dl Globulin 3.7 4.4 H (2.5-4.0) gm/dl Albumin/Globulin Ratio 0.9 0.9 (0.9-2) Lipase 137 (73-393) U/L 11/15/18 11/15/18 Range/Units 22:50 22:50 WBC 10.82 H (4.8-10.8) K/uL RBC 4.65 (4.2-5.4) M/uL Hgb 14.0 (12.0-16.0) g/dL Hct 40.7 (37-47) % MCV 87.5 (80-100) fL MCH 30.1 (25-34) pg MCHC 34.4 (32-36) g/dL RDW Std Deviation 45.6 (36.4-46.3) fL RDW Coeff of Saige 14.4 (11.5-14.5) % Plt Count 287 (130-400) K/uL MPV 10.2 (7.4-10.4) fL Immature Gran % (Auto) 0.3 % Neut % (Auto) 75.6 % Lymph % (Auto) 16.6 % Pitkin % (Auto) 6.1 % Eos % (Auto) 1.2 % Baso % (Auto) 0.2 % Immature Gran # (Auto) 0.03 H (0.00-0.02) K/uL Neut # (Auto) 8.18 H (1.4-6.5) K/uL Lymph # (Auto) 1.80 (1.2-3.4) K/uL Pitkin # (Auto) 0.66 H (0.11-0.59) K/uL Eos # (Auto) 0.13 (0-0.5) K/uL Baso # (Auto) 0.02 (0-0.2) K/uL PT 10.9 (9.0-12.0) Seconds INR 1.1 (0.9-1.1) APTT 28.6 (21.0-31.0) Seconds PTT Ratio 1.1 D-Dimer (0-500) ug/L FEU Sodium (136-145) mmol/L Potassium (3.5-5.1) mmol/L Chloride (98-107) mmol/L Carbon Dioxide (21-32) mmol/L Anion Gap (3-11) BUN (7-18) mg/dl Creatinine (0.6-1.2) mg/dl Est Cr Clr Drug Dosing ml/min Est GFR ( Amer) Est GFR (Non-Af Amer) BUN/Creatinine Ratio (10-20) Glucose (70-99) mg/dl Calcium (8.5-10.1) mg/dl Total Bilirubin (0.2-1) mg/dl AST (15-37) U/L ALT (12-78) U/L Alkaline Phosphatase (45-117) U/L Troponin I (0-0.045) ng/ml Total Protein (6.4-8.2) gm/dl Albumin (3.4-5.0) gm/dl Globulin (2.5-4.0) gm/dl Albumin/Globulin Ratio (0.9-2) Lipase (73-393) U/L Code Status & VTE Plan VTE Prophylaxis Plan VTE Prophylaxis will be ordered: No (1) Cholelithiases Biliary obstruction: without biliary obstruction Cholecystitis presence: without cholecystitis Cholelithiasis location: gallbladder Qualified Code(s): K80.20 - Calculus of gallbladder without cholecystitis without obstruction
[2018-11-16] MEDS: PROMETHAZINE HCL 12.5 MG in SODIUM CHLORIDE 0.9% 50 ML IV PRN ×2 (09:16→15:07)
[2018-11-16] MEDS ORDERED: LIDOCAINE HCL 1% 20 ML VIAL ONE (11:33)
[2018-11-16] MEDS ORDERED: BUPIVACAINE 0.5 % 5 MG/1 ML MPF 30ML VIAL ONE (11:33)
[2018-11-16] MEDS ORDERED: MIDAZOLAM HCL 1 MG/ML 2ML VIAL ONE (11:33)
[2018-11-16] MEDS ORDERED: BACITRACIN OINT 15 GM TUBE ONE (11:33)
[2018-11-16] MEDS ORDERED: fentaNYL citrate 100 MCG/2 ML VIAL ONE ×2 (11:33→13:01)
--- NOTE | 2018-11-16 11:34 | Anesthesiology Consultation ---
Date of Service November 16, 2018 Assessment & Plan Chart Review Chart Review: Acceptable Risk for Surgery and Patient NOT seen in Pre Admission Testing Consults Requested none ASA ASA3 Proposed Anesthesia Anesthesia Type: General Risk / Benefits Reviewed With: PT / POA / Parent / Guardian, Accepts Plan and Informed Consent Obtained History Surgery Operation Date: 11/16/18 12:05 Proposed Procedures p Laparoscopic Cholecystectomy with No Cholangiogram - Chelle Mcguire MD Height/Weight Height: 5 ft 2 in Weight: 128.6 kg Allergies Allergy/AdvReac Type Severity Reaction Status Date / Time No Known Allergies Allergy Verified 06/23/18 10:59 Medications Home Medications Medication Instructions Recorded Confirmed Last Taken Probiotic and Acidophilus 1 cap PO QAM 06/14/18 11/16/18 05/24/18 metformin 500 mg PO BID 06/14/18 11/16/18 06/22/18 metoclopramide HCl [Reglan] 10 mg PO DAILY PRN 06/14/18 11/16/18 06/22/18 omeprazole 20 mg PO BID 06/14/18 11/16/18 06/23/18 ondansetron 4 mg PO Q8H PRN 06/14/18 11/16/18 06/22/18 sennosides [senna] 1 - 2 tab PO DAILY PRN 06/14/18 11/16/18 05/24/18 metoprolol succinate 12.5 mg PO BID 06/23/18 11/16/18 06/22/18 18:00 docusate sodium [Colace] 100 mg PO DAILY 11/16/18 11/16/18 Unknown ferrous sulfate 325 mg PO DAILY 11/16/18 11/16/18 Unknown propranolol 20 mg PO BID 11/16/18 11/16/18 Unknown Active Medications Generic Name Dose Route Start Last Admin Trade Name Freq PRN Reason Stop Dose Admin Sodium Chloride 1,000 mls @ 100 mls/hr 11/16/18 03:41 11/16/18 03:59 Nss 1000ml IV 12/16/18 03:40 100 mls/hr .Q10H JUAN Administration Famotidine 20 mg/ Syringe 5 mls @ 2.5 mls/min 11/16/18 09:00 11/16/18 08:44 IV 12/16/18 08:59 2.5 mls/min DAILY JUAN Administration Promethazine HCl 12.5 mg/ 50.5 mls @ 202 mls/hr 11/16/18 09:08 11/16/18 09:31 Sodium Chloride IV 12/16/18 09:07 Infused Q6H PRN Infusion Nausea And Vomiting Ondansetron HCl 4 mg 11/16/18 03:41 11/16/18 03:59 Zofran IV 12/16/18 03:40 4 mg Q6H PRN Administration Nausea NPO Date Last Intake of Fluids: 11/16/18 Time Last Intake of Fluids: 01:00 Last Intake of Fluids Comment: sip with pain medication in ED Date Last Intake of Solids: 11/15/18 Time Last Intake of Solids: 17:00 Past Medical History Medical History SVT (supraventricular tachycardia) Anxiety no meds Chronic back pain GERD (gastroesophageal reflux disease) Gastroparesis Obesity, morbid, BMI 50 or higher PCOS (polycystic ovarian syndrome) reason for metformin Exercise / Class Metabolic Activity II 4-5 Yardwork/Stairs/Walk up hill Negative for chest pain, positive for SOB Past Family History Family History Father Family history of diabetes mellitus Other No family history of adverse response to anesthesia Past Surgical History Surgical History History of tooth extraction History of wisdom tooth extraction under local Past Anesthesia History No Hx of Anesthesia Complications (Some reported obstruction during colonoscopy) History of PONV No Hx of PONV (Positive for family history) and No Hx of Motion Sickness Social History Smoking Status: Never smoker Do You Dip or Chew Tobacco: No Hx Alcohol Use: No Hx Substance Use: No substance use type: does not use Review of Systems Positive for hoarse voice Positive for GERD right now Physical Exam Vital Signs Last Vital Signs Temp 36.5 C 11/16/18 07:45 Pulse 57 L 11/16/18 07:45 Resp 16 11/16/18 07:45 BP 95/59 L 11/16/18 07:45 Pulse Ox 97 11/16/18 07:45 Constitutional + morbidly obese ENMT Mouth: no TMJ abnormality and oral opening not small Thyromental Distance: > or= 3.5 Finger Breadths Mallampati Class: II Neck normal visual inspection; neck extension not limited Respiratory normal respiratory effort Auscultation: lungs clear to auscultation bilaterally Cardiovascular Rate/Rhythm: regular rate and regular rhythm Heart Sounds: no murmur Neurologic moves all extremities Psychiatric Orientation: alert and oriented x 3 Testing Laboratory Results 11/15/18 22:50 11/16/18 06:11 PT 10.9 Seconds (9.0-12.0) 11/15/18 22:50 INR 1.1 (0.9-1.1) 11/15/18 22:50 APTT 28.6 Seconds (21.0-31.0) 11/15/18 22:50 Electrocardiogram Date: 11/15/18 Findings: + NSR @ (99)
--- NOTE | 2018-11-16 11:53 | History & Physical Bridge Note ---
Date of Service November 16, 2018 History & Physical Bridge Note I have examined the patient, reviewed the History & Physical and in the interval since the performance of the History & Physical I have noted the following changes of clinical significance: no changes noted. I did talk to pt and her about benefits, risks and alternatives of the surgery, [facility] risks - infection, bleeding, injury CBD, bowel, may need ERCP, incisional hernia, DVT, , pt and her understood,they agree with the surgery, I answered all questions,
[2018-11-16] MEDS ORDERED: CEFAZOLIN 3000MG/72.5 ML BAG IV ONE (12:04)
[2018-11-16] MEDS: CEFAZOLIN 3000MG 72.5 ML IV ONE (12:15)
[2018-11-16] MEDS ORDERED: CEFAZOLIN 3000MG 72.5 ML IV ONE (12:16)
[2018-11-16] MEDS ORDERED: ATROPINE SULFATE 0.1 MG/ML 10ML SYR IV PRN (12:22)
[2018-11-16] MEDS ORDERED: ONDANSETRON INJ 2 MG/ML 2 ML VIAL IV PRN (12:22)
[2018-11-16] MEDS ORDERED: ePHEDrine sulfate 50 MG/ML AMP IV PRN (12:22)
[2018-11-16] MEDS ORDERED: PROMETHAZINE HCL 12.5 MG in SODIUM CHLORIDE 0.9% 50 ML IV PRN (12:22)
[2018-11-16] MEDS ORDERED: SUCCINYLCHOLINE CHLORIDE 20 MG/ML 10 ML VIAL ONE (13:02)
[2018-11-16] MEDS ORDERED: DEXAMETHASONE SOD INJ 4 MG/ML VIAL ONE (13:02)
[2018-11-16] MEDS ORDERED: ONDANSETRON INJ 2 MG/ML 2 ML VIAL ONE (13:02)
[2018-11-16] MEDS ORDERED: LIDOCAINE HCL 2% 2 ML VIAL/AMP(20MG/ML) INFIL ONE (13:02)
[2018-11-16] MEDS ORDERED: PROPOFOL IV EMULSION 10 MG/ML 20 ML VIAL IV ONE (13:02)
[2018-11-16] MEDS ORDERED: ROCURONIUM BROMIDE 10 MG/ML 5 ML VIAL ONE (13:02)
--- NOTE | 2018-11-16 14:08 | Post Operative Brief Note ---
Immediate Post Op Note v1 Date of Surgery November 16, 2018 Pre & Post Diagnosis Operation Date: 11/16/18 12:05 Pre-Op Diagnosis: BILIARY COLIC, acute cholecystitis, cholelithiasis Post-Op Diagnosis: BILIARY COLIC, acute cholecystitis, cholelithiasis Procedure Operation Date: 11/16/18 12:05 Actual Procedures p Laparoscopic Cholecystectomy with No Cholangiogram - Chelle Mcguire MD Surgeon Chelle Mcguire MD Grievance And Appeals Coordinator CHESTER Dunn Estimated Blood Loss 20 Findings Consistent with Post-Op Diagnosis significant inflammation on gallbladder wall, Fluids 1200ml Specimens gallbladder Anesthesia Type General Complications none Disposition Accompanied Patient To Recovery: Yes Disposition: Recovery Room Overlapping Procedure I was immediately available: during the entire case.
[2018-11-16] MEDS: fentaNYL citrate 100 MCG/2 ML VIAL IV PRN ×2 (14:40→14:45)
[2018-11-16] MEDS: HYDROmorphone INJ 1 MG/ML SYRINGE IV PRN ×4 (14:52→15:07)
--- NOTE | 2018-11-16 15:14 | Anesthesiology Progress Note ---
Date of Service November 16, 2018 Anesthesia Post Procedure Vital Signs Vital Signs: Temp Pulse Pulse Pulse Resp BP BP 11/16/18 15:00 63 14 131/77 11/16/18 14:50 74 16 142/80 H 11/16/18 14:40 83 16 159/77 H 11/16/18 14:32 36.9 C 90 16 161/87 H 11/16/18 12:00 36.9 C 67 16 134/69 11/16/18 07:45 36.5 C 57 L 16 95/59 L 11/16/18 03:42 36.6 C 58 L 18 125/81 11/16/18 03:00 66 13 104/62 11/16/18 02:30 70 15 114/63 11/16/18 02:00 70 14 120/66 11/16/18 01:30 68 15 131/78 11/16/18 01:00 66 10 L 132/71 11/16/18 00:47 66 18 125/73 11/16/18 00:00 71 15 117/60 11/15/18 23:30 78 14 126/69 11/15/18 23:18 76 12 121/80 11/15/18 23:12 11/15/18 23:00 74 20 121/80 11/15/18 22:05 36.6 C 77 21 126/80 Pulse Ox 11/16/18 15:00 96 11/16/18 14:50 99 11/16/18 14:40 97 11/16/18 14:32 97 11/16/18 12:00 98 11/16/18 07:45 97 11/16/18 03:42 97 11/16/18 03:00 97 11/16/18 02:30 95 11/16/18 02:00 96 11/16/18 01:30 97 11/16/18 01:00 96 11/16/18 00:47 94 11/16/18 00:00 97 11/15/18 23:30 98 11/15/18 23:18 97 11/15/18 23:12 99 11/15/18 23:00 97 11/15/18 22:05 97 Pain Intensity Right Upper Medial Abdomen: Pain Intensity: 5 Transfer of Care Handoff Completed per policy Notes Mental Status: alert / awake / arousable and participated in evaluation Patient Amnestic to Procedure: Yes Nausea / Vomiting: improving with treatment Pain: improving with treatment Airway Patency, RR, SpO2: stable & adequate BP & HR: stable & adequate Hydration State: stable & adequate Anesthetic Complications: no major complications apparent and Pt Satisfied with anesthetic care
[2018-11-16] MEDS ORDERED: KETOROLAC (**for OR use only**) 30 MG/ML VIAL IV ONE (15:23)
[2018-11-16] MEDS ORDERED: KETOROLAC 30 MG/ML VIAL ONE (15:27)
[2018-11-16] MEDS ORDERED: ACETAMINOPHEN 325 MG TAB PO PRN (16:22)
[2018-11-16] MEDS ORDERED: METOCLOPRAMIDE HCL 10 MG TABLET PO PRN (16:22)
[2018-11-16] MEDS ORDERED: SENNA 8.6 MG TAB PO PRN (16:22)
[2018-11-16] MEDS ORDERED: ONDANSETRON 4 MG TAB PO PRN (16:22)
[2018-11-16] MEDS: OXYCODONE/ACETAMINOPHEN 5mg/325mg TAB PO PRN (19:48)
[2018-11-16] MEDS ORDERED: METOPROLOL SUCCINATE 12.5 MG PO SCH (21:00)
[2018-11-16] MEDS: PROPRANOLOL HCL 20 MG TAB PO SCH (21:11)
[2018-11-16] MEDS: PANTOprazole 40 MG TAB PO SCH (21:11)
[2018-11-16] MEDS: HYDROmorphone INJ 0.5 MG/0.5 ML SYR IV PRN (21:12)
[2018-11-16] MEDS: DOCUSATE SODIUM 100 MG CAP PO SCH (21:16)
--- NOTE | 2018-11-16 23:25 | Operative Report ---
DATE OF OPERATION: 11/16/2018 PREOPERATIVE DIAGNOSES: Acute cholecystitis, cholelithiasis. POSTOPERATIVE DIAGNOSES: Acute cholecystitis, cholelithiasis. OPERATION: Laparoscopic cholecystectomy. SURGEON: Chelle Mcguire M.D. TELECASTING ENGINEER: Rose Longoria PA-C ANESTHESIA: General. ESTIMATED BLOOD LOSS: About 20 mL. FINDINGS: Significant inflammation on the gallbladder wall, confirmed diagnosis of acute cholecystitis with cholelithiasis. COMPLICATIONS: None. INDICATIONS FOR THE PROCEDURE: This is a 43-year-old female who was admitted to hospital for acute cholecystitis with cholelithiasis. The patient will be required to do the laparoscopic cholecystectomy, possible open, possible cholangiogram. I did talk to the patient about the benefit and risk, alternate procedure. I indicated the risks may include but not limited such as bleeding, infection, injury to common bile duct, injury to the bowel, may need ERCP, DVT, incisional hernia, even . The patient understands. She signed informed consent and I answered all questions. DETAILS OF PROCEDURE: We brought the patient to the OR, put the patient in the supine position. The patient received SCD on bilateral legs to prevent DVT. Also, patient received 2 g Ancef IV for prophylactic antibiotic. The patient received general anesthesia without difficulty. The abdomen was appropriately draped in routine sterile fashion. After time-out, I injected local anesthesia by using 1% lidocaine mixed with 0.5% Marcaine just above umbilicus, then made a small incision just above umbilicus, opened fascia and opened peritoneum under direct vision, put a Jossue trocar in, connected to CO2 to create pneumoperitoneum. Flow rate at 6 liters per minute. Pressure not more than 14 mmHg. Once we got a nice pneumoperitoneum, we put the camera in, looked around the abdomen, shows normal finding on the liver. However, the gallbladder showed significant inflammation, gallbladder wall thickening, edema, confirmed diagnosis of acute cholecystitis. Then, we put another three 5-mm trocar on the right upper quadrant. Once all trocars in, we put a grasper to hold the base of gallbladder, put direction to the diaphragm, put another grasper to hold the pouch of gallbladder, put the latter to expunge the triangle of Calot. The cystic duct was identified and mobilized. Then, I put two 5-mm metal clip on the proximal cystic duct, one on the distal cystic duct and used the scissor transecting the cystic duct. Rechecked, no bile leak. The cystic artery was identified and mobilized. I put two 5-mm metal clips on the proximal cystic artery around the distal cystic duct artery and used a scissor for transection of cystic duct artery. Rechecked, no active bleeding. Then, we used the Bovie to take down from the liver bed. Rechecked, no active bleeding, no bile leak from the liver bed. Then, we removed gallbladder through the catch bag. Then, we reinserted Jossue trocar and connected to CO2 to create pneumoperitoneum. Again looked around the abdomen, showed no active bleeding, no bile leak from liver bed. Then, we removed all the trocars under direct vision. No active bleeding from the trocar sites. Pneumoperitoneum was released. I closed the umbilical incision, fascial layer by using #1 Vicryl [id number] x2, closed subcutaneous layer by using 2-0 Vicryl interruptedly, closed skin by using 4-0 Vicryl continuous running, closed another three 5-mm trocar site skin only by using 4-0 Vicryl. Then, we put the dressing on. The patient tolerated the procedure well. All instrument, needle, sponge count were correct x2 at the end of the case. The patient transferred to recovery room in stable condition. The specimen sent to pathology. After procedure, I did talk to the patient's about the OR finding and procedure we did, he understands. I attest to the content of the Intraoperative Record and any orders documented therein. Any exception s are noted below.
[2018-11-17] MEDS: ONDANSETRON INJ 2 MG/ML 2 ML VIAL IV PRN ×3 (01:43→17:55)
[2018-11-17] MEDS: SODIUM CHLORIDE 0.9% 1000ML 1,000 ML IV SCH ×3 (01:43→20:02)
[2018-11-17] MEDS: HYDROmorphone INJ 0.5 MG/0.5 ML SYR IV PRN ×5 (01:43→23:38)
[2018-11-17] MEDS: OXYCODONE/ACETAMINOPHEN 5mg/325mg TAB PO PRN ×2 (06:38→19:56)
[2018-11-17 07:10] LABS: Basophils # (auto) 0.01 K/uL (0-0.2); Basophils % (auto) 0.1 %; Hematocrit (blood only) 36.2 % (37-47); Hemoglobin 11.7 g/dL (12.0-16.0); Immature Granulocytes # (auto) 0.02 K/uL (0.00-0.02); Immature Granulocytes % (auto) 0.2 %; Lymphocytes % (auto) 19.3 %; Mean Corpuscular Hgb Conc 32.3 g/dL (32-36); Mean Corpuscular Volume 91.2 fL (80-100); Mean Platelet Volume 10.5 fL (7.4-10.4); Monocytes # (auto) 0.53 K/uL (0.11-0.59); Monocytes % (auto) 5.1 %; Neutrophils # (auto) 7.79 K/uL (1.4-6.5); Neutrophils % (auto) 75.3 %; Platelet Count 285 K/uL (130-400); RDW Coefficient of Variation 14.8 % (11.5-14.5); RDW Standard Deviation 49.5 fL (36.4-46.3); Red Blood Count 3.97 M/uL (4.2-5.4); White Blood Count 10.35 K/uL (4.8-10.8)
[2018-11-17 07:19] LABS: Albumin Level 3.2 gm/dl (3.4-5.0); Calcium 8.2 mg/dl (8.5-10.1); Creatinine Clr Calc Pharmacy 98.2 ml/min; Est GFR (African American) 84.5; Est GFR (Non-African American) 72.9; Potassium 3.8 mmol/L (3.5-5.1)
[2018-11-17 07:21] LABS: Albumin Globulin Ratio 0.8 (0.9-2); Bilirubin,Total 1.3 mg/dl (0.2-1); Globulin 3.8 gm/dl (2.5-4.0)
--- NOTE | 2018-11-17 08:12 | Anesthesiology Progress Note ---
Date of Service November 17, 2018 Anesthesia Post Procedure Vital Signs Vital Signs: Temp Pulse Pulse Pulse Resp BP BP 11/17/18 07:44 36.9 C 62 16 98/61 L 11/17/18 03:40 36.8 C 60 18 100/65 11/16/18 23:47 36.8 C 60 16 105/67 11/16/18 21:10 36.6 C 89 18 124/84 11/16/18 19:41 37 C 76 16 122/79 11/16/18 18:15 36.7 C 67 16 118/78 11/16/18 17:17 36.5 C 73 16 143/84 H 11/16/18 16:45 36.7 C 59 L 16 130/83 11/16/18 16:15 36.8 C 69 16 134/81 11/16/18 15:45 62 14 142/77 H 11/16/18 15:30 64 14 142/77 H 11/16/18 15:20 76 14 150/82 H 11/16/18 15:10 36.7 C 73 14 149/77 H 11/16/18 15:00 63 14 131/77 11/16/18 14:50 74 16 142/80 H 11/16/18 14:40 83 16 159/77 H 11/16/18 14:32 36.9 C 90 16 161/87 H 11/16/18 12:00 36.9 C 67 16 134/69 Pulse Ox 11/17/18 07:44 97 11/17/18 03:40 97 11/16/18 23:47 98 11/16/18 21:10 93 11/16/18 19:41 98 11/16/18 18:15 100 11/16/18 17:17 97 11/16/18 16:45 99 11/16/18 16:15 95 11/16/18 15:45 98 11/16/18 15:30 95 11/16/18 15:20 96 11/16/18 15:10 99 11/16/18 15:00 96 11/16/18 14:50 99 11/16/18 14:40 97 11/16/18 14:32 97 11/16/18 12:00 98 Pain Intensity Right Upper Medial Abdomen: Pain Intensity: 6 Notes Mental Status: alert / awake / arousable Patient Amnestic to Procedure: Yes Nausea / Vomiting: adequately controlled Pain: adequately controlled Airway Patency, RR, SpO2: stable & adequate BP & HR: stable & adequate Hydration State: stable & adequate Anesthetic Complications: no major complications apparent and Pt Satisfied with anesthetic care
--- NOTE | 2018-11-17 08:43 | Gastrointestinal Consultation ---
Date of Consultation November 17, 2018 Assessment & Plan (1) Cholelithiases: 43 year old female POD 1 cholecystectomy w/ elevated TB and transaminases w/ persistent RUQ and nausea. DDX discussed. Will arrange diagnostic EUS +/- ERCP for evaluation given concern for retained biliary stones/sludge - Anti-emetics PRN - Analgesia PRN - Strict NPO - Plan for EUS/ERCP today w/ Dr. Ro, availability 1:30 Thank you for allowing us to participate in the care of this patient. Please call with any acute changes, questions or concerns. Please see addendum below with additional recommendation from my supervising physician. Present on Admission?: Yes Supervising Physician Co-Signing Physician Notes Attending attestation I have seen, examined this patient, and agree with the findings and above by our mid-level provider LARRY Stephenson, with the following additions. -Patient with pain and mildly elevated LFT's. After discussing with Dr. Ro, planning on EUS and +/- ERCP. -Continue with NPO History of Present Illness Reason for Consultation: elevated LFTs s/p cholecystectomy Requesting Physician: Leila Attending Physician: Waylon Dee MD History of Present Illness 43 year old female with history of PCOS, GERD, gastroparesis, CINDY s/p recent EGD/Colonoscopy who presented through the ED 11/15 w/ severe upper abdominal pain, nausea but no vomiting. At that time, ABD US obtained which showed a partially contracted gallbladder w/ cholelithiasis sludge but no biliary dilation. She was evaluated by general surgery and is now s/p lap cholecystectomy. She notes post- operatively the severe pain had resolved but manley notes mild upper abdominal pain w/ associated nausea, no vomiting. She has mildly elevated transaminases and normal lipase. Denies any fever, chills, CP, SOB. Is passing gas but no BM. TB 1.1 --> 0.8 --> 1.3 AST 44 --> 247 --> 61 ALT 76 --> 251 --> 152 ALKP 125 --> 155 --> 129 Lipase 71 Allergies Allergy/AdvReac Type Severity Reaction Status Date / Time No Known Allergies Allergy Verified 06/23/18 10:59 Home Medications Home Medications Medication Instructions Recorded Confirmed Type Probiotic and Acidophilus 1 cap PO QAM 06/14/18 11/16/18 History metformin 500 mg PO BID 06/14/18 11/16/18 History metoclopramide HCl [Reglan] 10 mg PO DAILY PRN 06/14/18 11/16/18 History omeprazole 20 mg PO BID 06/14/18 11/16/18 History ondansetron 4 mg PO Q8H PRN 06/14/18 11/16/18 History sennosides [senna] 1 - 2 tab PO DAILY PRN 06/14/18 11/16/18 History docusate sodium [Colace] 100 mg PO DAILY 11/16/18 11/16/18 History ferrous sulfate 325 mg PO DAILY 11/16/18 11/16/18 History propranolol 20 mg PO BID 11/16/18 11/16/18 History oxycodone-acetaminophen 1 tab PO Q4H PRN #18 tab 11/17/18 Rx Patient History Medical History SVT (supraventricular tachycardia) Anxiety no meds Chronic back pain GERD (gastroesophageal reflux disease) Gastroparesis Obesity, morbid, BMI 50 or higher PCOS (polycystic ovarian syndrome) reason for metformin Surgical History History of tooth extraction History of wisdom tooth extraction under local Family History Father Family history of diabetes mellitus Other No family history of adverse response to anesthesia Social History Preferred Language: Kosovan Communication Ability: Effective Dredge Deckhand Required: No Beliefs That Will Affect Care: None Current Living Situation: Spouse Current Living Situation Comment: Home with spouse Other Information That Helps Us Care for You: No Feels Safe at Home: Yes Safety Concerns: Feels Safe At This Time Smoking Status: Never smoker Do You Dip or Chew Tobacco: No ; Second Hand Exposure: No ; Tobacco Cessation Education Requested by Patient: No Hx Alcohol Use: No Hx Substance Use: No Review of Systems Constitutional: no fever, no chills and no fatigue Respiratory: no cough, no dyspnea and no wheezing Cardiovascular: no chest pain, no chest pain at rest and no claudication Gastrointestinal: + abdominal pain and + nausea; no belching, no coffee ground emesis, no hematemesis, no blood in stools and no melena Physical Exam Constitutional: WD/WN, vitals as above Neck: trachea midline Respiratory: normal respiratory effort, lungs clear to auscultation Cardiovascular: RRR, no murmur, no edema Gastrointestinal (Abdomen): Inspection/Auscultation: normal bowel sounds Percussion/Palpation: + abdomen tender (generalized) and abdomen soft; no guarding and abdomen not rigid Skin: no rashes, warm and dry Results & Data Vital Signs (Past 12 Hours) Vital Signs Temp Pulse Resp BP BP Pulse Ox 11/17/18 07:44 36.9 C 62 16 98/61 L 97 11/17/18 03:40 36.8 C 60 18 100/65 97 11/16/18 23:47 36.8 C 60 16 105/67 98 11/16/18 21:10 36.6 C 89 18 124/84 93 Laboratory Results 11/17/18 11/17/18 11/17/18 Range/Units 06:19 06:19 06:19 WBC 10.35 (4.8-10.8) K/uL RBC 3.97 L (4.2-5.4) M/uL Hgb 11.7 L (12.0-16.0) g/dL Hct 36.2 L (37-47) % MCV 91.2 (80-100) fL MCH 29.5 (25-34) pg MCHC 32.3 (32-36) g/dL RDW Std Deviation 49.5 H (36.4-46.3) fL RDW Coeff of Saige 14.8 H (11.5-14.5) % Plt Count 285 (130-400) K/uL MPV 10.5 H (7.4-10.4) fL Immature Gran % (Auto) 0.2 % Neut % (Auto) 75.3 % Lymph % (Auto) 19.3 % [place] % (Auto) 5.1 % Eos % (Auto) 0.0 % Baso % (Auto) 0.1 % Immature Gran # (Auto) 0.02 (0.00-0.02) K/uL Neut # (Auto) 7.79 H (1.4-6.5) K/uL Lymph # (Auto) 2.00 (1.2-3.4) K/uL [place] # (Auto) 0.53 (0.11-0.59) K/uL Eos # (Auto) 0.00 (0-0.5) K/uL Baso # (Auto) 0.01 (0-0.2) K/uL Sodium 143 (136-145) mmol/L Potassium 3.8 (3.5-5.1) mmol/L Chloride 113 H (98-107) mmol/L Carbon Dioxide 22 (21-32) mmol/L Anion Gap 8.0 (3-11) BUN 9 (7-18) mg/dl Creatinine 0.96 (0.6-1.2) mg/dl Est Cr Clr Drug Dosing 98.2 ml/min Est GFR ( Amer) 84.5 Est GFR (Non-Af Amer) 72.9 BUN/Creatinine Ratio 9.0 L (10-20) Glucose 101 H (70-99) mg/dl Calcium 8.2 L (8.5-10.1) mg/dl Total Bilirubin 1.3 H D (0.2-1) mg/dl AST 61 H (15-37) U/L ALT 152 H (12-78) U/L Alkaline Phosphatase 124 H (45-117) U/L Total Protein 7.0 (6.4-8.2) gm/dl Albumin 3.2 L (3.4-5.0) gm/dl Globulin 3.8 (2.5-4.0) gm/dl Albumin/Globulin Ratio 0.8 L (0.9-2) Lipase 71 L (73-393) U/L POC Ur Test (NEG) 11/16/18 Range/Units Unknown WBC (4.8-10.8) K/uL RBC (4.2-5.4) M/uL Hgb (12.0-16.0) g/dL Hct (37-47) % MCV (80-100) fL MCH (25-34) pg MCHC (32-36) g/dL RDW Std Deviation (36.4-46.3) fL RDW Coeff of Saige (11.5-14.5) % Plt Count (130-400) K/uL MPV (7.4-10.4) fL Immature Gran % (Auto) % Neut % (Auto) % Lymph % (Auto) % [place] % (Auto) % Eos % (Auto) % Baso % (Auto) % Immature Gran # (Auto) (0.00-0.02) K/uL Neut # (Auto) (1.4-6.5) K/uL Lymph # (Auto) (1.2-3.4) K/uL [place] # (Auto) (0.11-0.59) K/uL Eos # (Auto) (0-0.5) K/uL Baso # (Auto) (0-0.2) K/uL Sodium (136-145) mmol/L Potassium (3.5-5.1) mmol/L Chloride (98-107) mmol/L Carbon Dioxide (21-32) mmol/L Anion Gap (3-11) BUN (7-18) mg/dl Creatinine (0.6-1.2) mg/dl Est Cr Clr Drug Dosing ml/min Est GFR ( Amer) Est GFR (Non-Af Amer) BUN/Creatinine Ratio (10-20) Glucose (70-99) mg/dl Calcium (8.5-10.1) mg/dl Total Bilirubin (0.2-1) mg/dl AST (15-37) U/L ALT (12-78) U/L Alkaline Phosphatase (45-117) U/L Total Protein (6.4-8.2) gm/dl Albumin (3.4-5.0) gm/dl Globulin (2.5-4.0) gm/dl Albumin/Globulin Ratio (0.9-2) Lipase (73-393) U/L POC Ur Test NEG (NEG) (1) Cholelithiases Biliary obstruction: without biliary obstruction Cholecystitis presence: without cholecystitis Cholelithiasis location: gallbladder Qualified Code(s): K80.20 - Calculus of gallbladder without cholecystitis without obstruction
[2018-11-17] MEDS: FERROUS SULFATE 325 MG TAB PO SCH (08:44)
[2018-11-17] MEDS: LACTOBACILLUS ACIDOPHILUS (FLORANEX) TAB PO SCH (08:44)
[2018-11-17] MEDS: PANTOprazole 40 MG TAB PO SCH ×2 (08:44→19:57)
[2018-11-17] MEDS: PROPRANOLOL HCL 20 MG TAB PO SCH ×2 (08:44→19:58)
--- NOTE | 2018-11-17 08:59 | Surgery Progress Note ---
Date of Service November 17, 2018 Assessment & Plan (1) Cholelithiases: POD # 1 s/p laparoscopic cholecystectomy -vitals stable, afebrile - post op pain moderate, similar to preop pain - + nausea - LFTS improved but T. bili elevated at 1.3 today (0.8 yesterday) Plan: Will consult GI for further evaluation/recommendations given elevated t. bili. Possible retained small stone/sludge in CBD Continue pain management as needed Continue IV Zofran as needed Continue IV Fluids Incentive spirometry, ambulate, scds Dr. Mcguire has seen patient, agrees with above Subjective still having abdominal pain, mostly RUQ, same as pain upon presentation + nausea no vomiting ambulated hallway Physical Exam Constitutional: WD/WN, vitals as above no acute distress Gastrointestinal (Abdomen): Inspection/Auscultation: abdomen not distended Percussion/Palpation: + abdomen tender (RUQ as well as incision sites), + guarding (Voluntary , RUQ) and abdomen soft; abdomen not rigid Skin: no rashes, warm and dry + incision (covered with dressings, mild spotting present) Psychiatric: A+Ox3, euthymic affect Results & Data Vital Signs (Past 12 Hours) Vital Signs Temp Pulse Resp BP BP Pulse Ox 11/17/18 07:44 36.9 C 62 16 98/61 L 97 11/17/18 03:40 36.8 C 60 18 100/65 97 11/16/18 23:47 36.8 C 60 16 105/67 98 11/16/18 21:10 36.6 C 89 18 124/84 93 Laboratory Results 11/17/18 11/17/18 11/17/18 Range/Units 06:19 06:19 06:19 WBC 10.35 (4.8-10.8) K/uL RBC 3.97 L (4.2-5.4) M/uL Hgb 11.7 L (12.0-16.0) g/dL Hct 36.2 L (37-47) % MCV 91.2 (80-100) fL MCH 29.5 (25-34) pg MCHC 32.3 (32-36) g/dL RDW Std Deviation 49.5 H (36.4-46.3) fL RDW Coeff of Saige 14.8 H (11.5-14.5) % Plt Count 285 (130-400) K/uL MPV 10.5 H (7.4-10.4) fL Immature Gran % (Auto) 0.2 % Neut % (Auto) 75.3 % Lymph % (Auto) 19.3 % [place] % (Auto) 5.1 % Eos % (Auto) 0.0 % Baso % (Auto) 0.1 % Immature Gran # (Auto) 0.02 (0.00-0.02) K/uL Neut # (Auto) 7.79 H (1.4-6.5) K/uL Lymph # (Auto) 2.00 (1.2-3.4) K/uL [place] # (Auto) 0.53 (0.11-0.59) K/uL Eos # (Auto) 0.00 (0-0.5) K/uL Baso # (Auto) 0.01 (0-0.2) K/uL Sodium 143 (136-145) mmol/L Potassium 3.8 (3.5-5.1) mmol/L Chloride 113 H (98-107) mmol/L Carbon Dioxide 22 (21-32) mmol/L Anion Gap 8.0 (3-11) BUN 9 (7-18) mg/dl Creatinine 0.96 (0.6-1.2) mg/dl Est Cr Clr Drug Dosing 98.2 ml/min Est GFR ( Amer) 84.5 Est GFR (Non-Af Amer) 72.9 BUN/Creatinine Ratio 9.0 L (10-20) Glucose 101 H (70-99) mg/dl Calcium 8.2 L (8.5-10.1) mg/dl Total Bilirubin 1.3 H D (0.2-1) mg/dl AST 61 H (15-37) U/L ALT 152 H (12-78) U/L Alkaline Phosphatase 124 H (45-117) U/L Total Protein 7.0 (6.4-8.2) gm/dl Albumin 3.2 L (3.4-5.0) gm/dl Globulin 3.8 (2.5-4.0) gm/dl Albumin/Globulin Ratio 0.8 L (0.9-2) Lipase 71 L (73-393) U/L POC Ur Test (NEG) 11/16/18 Range/Units Unknown WBC (4.8-10.8) K/uL RBC (4.2-5.4) M/uL Hgb (12.0-16.0) g/dL Hct (37-47) % MCV (80-100) fL MCH (25-34) pg MCHC (32-36) g/dL RDW Std Deviation (36.4-46.3) fL RDW Coeff of Saige (11.5-14.5) % Plt Count (130-400) K/uL MPV (7.4-10.4) fL Immature Gran % (Auto) % Neut % (Auto) % Lymph % (Auto) % [place] % (Auto) % Eos % (Auto) % Baso % (Auto) % Immature Gran # (Auto) (0.00-0.02) K/uL Neut # (Auto) (1.4-6.5) K/uL Lymph # (Auto) (1.2-3.4) K/uL [place] # (Auto) (0.11-0.59) K/uL Eos # (Auto) (0-0.5) K/uL Baso # (Auto) (0-0.2) K/uL Sodium (136-145) mmol/L Potassium (3.5-5.1) mmol/L Chloride (98-107) mmol/L Carbon Dioxide (21-32) mmol/L Anion Gap (3-11) BUN (7-18) mg/dl Creatinine (0.6-1.2) mg/dl Est Cr Clr Drug Dosing ml/min Est GFR ( Amer) Est GFR (Non-Af Amer) BUN/Creatinine Ratio (10-20) Glucose (70-99) mg/dl Calcium (8.5-10.1) mg/dl Total Bilirubin (0.2-1) mg/dl AST (15-37) U/L ALT (12-78) U/L Alkaline Phosphatase (45-117) U/L Total Protein (6.4-8.2) gm/dl Albumin (3.4-5.0) gm/dl Globulin (2.5-4.0) gm/dl Albumin/Globulin Ratio (0.9-2) Lipase (73-393) U/L POC Ur Test NEG (NEG) (1) Cholelithiases Biliary obstruction: without biliary obstruction Cholecystitis presence: without cholecystitis Cholelithiasis location: gallbladder Qualified Code(s): K80.20 - Calculus of gallbladder without cholecystitis without obstruction
[2018-11-18] MEDS: SODIUM CHLORIDE 0.9% 1000ML 1,000 ML IV SCH ×3 (05:08→23:13)
[2018-11-18 06:50] LABS: Basophils # (auto) 0.03 K/uL (0-0.2); Basophils % (auto) 0.4 %; Eosinophils # (auto) 0.11 K/uL (0-0.5); Eosinophils % (auto) 1.6 %; Hematocrit (blood only) 31.8 % (37-47); Hemoglobin 10.4 g/dL (12.0-16.0); Immature Granulocytes # (auto) 0.01 K/uL (0.00-0.02); Immature Granulocytes % (auto) 0.1 %; Lymphocytes # (auto) 3.07 K/uL (1.2-3.4); Lymphocytes % (auto) 44.8 %; Mean Corpuscular Hgb Conc 32.7 g/dL (32-36); Mean Corpuscular Volume 89.8 fL (80-100); Mean Platelet Volume 10.4 fL (7.4-10.4); Monocytes % (auto) 5.8 %; Neutrophils # (auto) 3.24 K/uL (1.4-6.5); Neutrophils % (auto) 47.3 %; Platelet Count 229 K/uL (130-400); RDW Coefficient of Variation 14.9 % (11.5-14.5); Red Blood Count 3.54 M/uL (4.2-5.4); White Blood Count 6.86 K/uL (4.8-10.8)
[2018-11-18] MEDS ORDERED: INDOMETHACIN 50 MG SUPP PR ONE (07:31)
--- NOTE | 2018-11-18 07:33 | History & Physical Bridge Note ---
Date of Service November 18, 2018 History & Physical Bridge Note I have examined the patient, reviewed the History & Physical and in the interval since the performance of the History & Physical I have noted the following changes of clinical significance: no changes noted. The patient underwent cholecystectomy and has had persistent discomfort since with elevation of her liver enzymes. We are planning for upper endoscopy with endoscopic ultrasound today to see if she might have a retained common bile duct stone. If positive we will proceed with ERCP. We have discussed the risks of the procedures to include bleeding, infection, perforation, pancreatitis, failed biliary cannulation and need for follow-up studies.
[2018-11-18 07:37] LABS: Albumin Level 2.7 gm/dl (3.4-5.0); BUN Creatinine Ratio 12.8 (10-20); Calcium 7.7 mg/dl (8.5-10.1); Creatinine Clr Calc Pharmacy 134.7 ml/min; Est GFR (African American) 123.9; Est GFR (Non-African American) 106.9; Potassium 3.6 mmol/L (3.5-5.1)
--- NOTE | 2018-11-18 07:41 | Surgery Progress Note ---
Date of Service November 18, 2018 Assessment & Plan (1) Acute epigastric pain: pt is undergoing EUS/ERCP this am- unable to perform yesterday see how she does over next 24 hrs and what GI thinks possible d/c tomorrow Results & Data Vital Signs (Past 12 Hours) Vital Signs Temp Pulse Resp BP BP Pulse Ox 11/18/18 07:04 36.7 C 65 16 135/85 98 11/17/18 23:10 36.6 C 66 16 107/71 96 PG Care Time/CCT Total # of Minutes Spent Total Time Spent with Patient: Total time spent is greater than 50% in coordination of care (as documented) at patient's floor/unit and/or counseling patient:
[2018-11-18 07:45] LABS: Albumin Globulin Ratio 0.9 (0.9-2); Bilirubin,Total 0.3 mg/dl (0.2-1); Globulin 3.1 gm/dl (2.5-4.0); Total Protein 5.8 gm/dl (6.4-8.2)
[2018-11-18] MEDS ORDERED: fentaNYL citrate 100 MCG/2 ML VIAL IV PRN (08:53)
[2018-11-18] MEDS ORDERED: ATROPINE SULFATE 0.1 MG/ML 10ML SYR IV PRN (08:53)
[2018-11-18] MEDS ORDERED: ePHEDrine sulfate 50 MG/ML AMP IV PRN (08:53)
[2018-11-18] MEDS ORDERED: MIDAZOLAM HCL 1 MG/ML 2ML VIAL ONE (09:41)
[2018-11-18] MEDS ORDERED: fentaNYL citrate 100 MCG/2 ML VIAL ONE (09:42)
--- NOTE | 2018-11-18 10:07 | GI REPORT ---
Patient Name: Valente Joya Procedure Date: 11/18/2018 8:54 AM Date of : 1975 Admit Type: Inpatient Age: 43 Gender: Female Attending MD: Adalberto Ro DO Procedure: Upper GI endoscopy Providers: Adalberto Ro DO Referring MD: Waylon Dee MD, Ramos Gunn MD, Pratik Macias Indications: Epigastric abdominal pain Medicines: General Anesthesia Complications: No immediate complications. Estimated blood loss: Minimal. Estimated Blood Loss: Estimated blood loss was minimal. Procedure: Pre-Anesthesia Assessment: - Prior to the procedure, a History and Physical was performed, and patient medications, allergies and sensitivities were reviewed. The patient's tolerance of previous anesthesia was reviewed. - The risks and benefits of the procedure and the sedation options and risks were discussed with the patient. All questions were answered and informed consent was obtained. - Patient identification and proposed procedure were verified prior to the procedure by the physician, the nurse and the machine ceramic coater. The procedure was verified in the pre-procedure area in the procedure room. - Pre-procedure physical examination revealed no contraindications to sedation. - ASA Grade Assessment: III - A patient with severe systemic disease. - After reviewing the risks and benefits, the patient was deemed in satisfactory condition to undergo the procedure. - The anesthesia plan was to use general anesthesia. - Immediately prior to administration of medications, the patient was re-assessed for adequacy to receive sedatives. - The heart rate, respiratory rate, oxygen saturations, blood pressure, adequacy of pulmonary ventilation, and response to care were monitored throughout the procedure. - The physical status of the patient was re-assessed after the procedure. After obtaining informed consent, the endoscope was passed under direct vision. Throughout the procedure, the patient's blood pressure, pulse, and oxygen saturations were monitored continuously.The upper GI endoscopy was accomplished without difficulty. The patient tolerated the procedure well. The scope was introduced through the mouth, and advanced to the third part of duodenum. Findings: The examined esophagus was normal. The Z-line was regular and was found 35 cm from the incisors. Multiple 4 to 6 mm semi-sessile polyps with no bleeding and no stigmata of recent bleeding were found in the entire examined stomach. Biopsies were taken with a cold forceps for histology. The pathology specimen was placed into Bottle A. Estimated blood loss was minimal. The examined duodenum was normal. Impression: - Normal esophagus. - Z-line regular, 35 cm from the incisors. - Multiple gastric polyps. Biopsied. - Normal examined duodenum. Recommendation: - Perform an upper endoscopic ultrasound (UEUS) today. - Await pathology results. Adalberto Ro D.O. Adalberto Ro, 11/18/2018 10:07:14 AM This report has been signed electronically. Note Initiated On: 11/18/2018 8:54 AM Number of Addenda: 0 I attest to the content of the Intraoperative Record and orders documented therein, exceptions below {[id number]}
--- NOTE | 2018-11-18 10:21 | GI REPORT ---
Patient Name: Valente Joya Procedure Date: 11/18/2018 8:56 AM Date of : 1975 Admit Type: Inpatient Age: 43 Gender: Female Attending MD: Adalberto Ro DO Procedure: Upper EUS Providers: Adalberto Ro DO Referring MD: Waylon Dee MD, Ramos Gunn MD Indications: Elevated liver enzymes, Suspected choledocholithiasis, Epigastric abdominal pain Medicines: General Anesthesia Complications: No immediate complications. Estimated blood loss: Minimal. Estimated Blood Loss: Estimated blood loss was minimal. Procedure: Pre-Anesthesia Assessment: - Prior to the procedure, a History and Physical was performed, and patient medications, allergies and sensitivities were reviewed. The patient's tolerance of previous anesthesia was reviewed. - The risks and benefits of the procedure and the sedation options and risks were discussed with the patient. All questions were answered and informed consent was obtained. - Patient identification and proposed procedure were verified prior to the procedure by the physician, the nurse and the shipping and receiving assistant. The procedure was verified in the procedure room. - Pre-procedure physical examination revealed no contraindications to sedation. - ASA Grade Assessment: III - A patient with severe systemic disease. - After reviewing the risks and benefits, the patient was deemed in satisfactory condition to undergo the procedure. - The anesthesia plan was to use general anesthesia. - Immediately prior to administration of medications, the patient was re-assessed for adequacy to receive sedatives. - The heart rate, respiratory rate, oxygen saturations, blood pressure, adequacy of pulmonary ventilation, and response to care were monitored throughout the procedure. - The physical status of the patient was re-assessed after the procedure. After obtaining informed consent, the endoscope was passed under direct vision. Throughout the procedure, the patient's blood pressure, pulse, and oxygen saturations were monitored continuously.The upper EUS was accomplished without difficulty. The patient tolerated the procedure well. The Scope was introduced through the mouth, and advanced to the third part of duodenum. Findings: ENDOSONOGRAPHIC FINDING: : There was no sign of significant endosonographic abnormality in the ampulla. No masses were identified. Evidence of a previous cholecystectomy was identified endosonographically. A fluid collection was noted, meaasuring 18 mm, mixed echogenicity, may represent a seroma or hematoma. One stone was visualized endosonographically in the common bile duct. The stone was round. It was hyperechoic. The CBD was 4 mm. There was abnormal echogenicity in the visualized portion of the liver. This area was hyperechoic. There was no sign of significant endosonographic abnormality in the entire pancreas. The pancreatic duct measured up to 2 mm in diameter. No masses, no cysts, the pancreatic duct was thin in caliber. Two benign-appearing lymph nodes were visualized in the arian hepatis region. The nodes were oval, hypoechoic and had poorly defined margins. There was no sign of significant endosonographic abnormality in the left adrenal gland. No adrenal gland enlargement was identified. Impression: - There was no sign of significant pathology in the ampulla. - Evidence of a cholecystectomy. - One stone was visualized endosonographically in the common bile duct. - There was abnormal echogenicity in the visualized portion of the liver. This was hyperechoic. Tissue has not been obtained. However, the endosonographic appearance is suggestive of fatty infiltration. - There was no sign of significant pathology in the entire pancreas. - Two benign lymph nodes were visualized in the arian hepatis region. - Endosonographic images of the left adrenal gland were unremarkable. - No specimens collected. Recommendation: - Perform an ERCP today. Adalberto Ro D.O. Adalberto Ro DO 11/18/2018 10:20:50 AM This report has been signed electronically. Note Initiated On: 11/18/2018 8:56 AM Number of Addenda: 0 I attest to the content of the Intraoperative Record and orders documented therein, exceptions below {[id number]}
[2018-11-18] MEDS: INDOMETHACIN 50 MG SUPP PR STA ×2 (10:32→10:49)
[2018-11-18] MEDS ORDERED: PROPOFOL IV EMULSION 10 MG/ML 20 ML VIAL IV ONE ×2 (10:35)
[2018-11-18] MEDS ORDERED: SUCCINYLCHOLINE CHLORIDE 20 MG/ML 10 ML VIAL ONE (10:35)
[2018-11-18] MEDS ORDERED: LIDOCAINE HCL 2% 2 ML VIAL/AMP(20MG/ML) INFIL ONE ×3 (10:38)
[2018-11-18] MEDS ORDERED: DEXAMETHASONE SOD INJ 4 MG/ML VIAL ONE ×2 (10:38)
--- NOTE | 2018-11-18 10:52 | Post Operative Brief Note ---
Immediate Post Op Note v1 Date of Surgery November 18, 2018 Pre & Post Diagnosis Operation Date: 11/16/18 12:05 Pre-Op Diagnosis: BILIARY COLIC Post-Op Diagnosis: BILIARY COLIC Operation Date: 11/18/18 07:30 Pre-Op Diagnosis: Gall stones Post-Op Diagnosis: Gastric polyps, gall stones Procedure Operation Date: 11/16/18 12:05 Actual Procedures p Laparoscopic Cholecystectomy with No Cholangiogram - Chelle Mcguire MD Operation Date: 11/18/18 07:30 Actual Procedures p Upper Endoscopic Ultrasonography, Esophagogastroduodenoscopy(Not Applicable) - Adalberto Ro s Endoscopic Retrograde Cholangiopancreatogram(Not Applicable) - Adalberto Ro Surgeon Adalberto Ro Clinical Program Director CHESTER Dunn Estimated Blood Loss 0 Findings Consistent with Post-Op Diagnosis Specimens gallbladder Anesthesia Type General
--- NOTE | 2018-11-18 11:04 | Fluoroscopy Report ---
[place] ERCP biliary ductal CLINICAL HISTORY: Post cholecystectomy. Duct exploration COMPARISON STUDY: Biliary ultrasound dated 11/16/2018 FLUOROSCOPY TIME: 88 seconds. NUMBER OF FLUOROSCOPIC IMAGES: 9 FINDINGS: 9 fluoroscopic spot images from an ERCP are provided for interpretation. The common bile du ct was catheterized and retrograde fashion. A guidewire was placed into the pancreatic duct. Contrast opacified the common bile duct and intrahepatic biliary tree. No filling defects are visualized. The re is no ductal dilatation. There are surgical clips in the region of the cystic duct. IMPRESSION: No evidence of ductal dilatation. No ductal filling defects identified. Electronically signed by: Laron Fenton M.D. 11/18/2018 11:03 AM
--- NOTE | 2018-11-18 11:30 | Anesthesiology Progress Note ---
Date of Service November 18, 2018 Anesthesia Post Procedure Vital Signs Vital Signs: Temp Pulse Pulse Resp BP BP Pulse Ox 11/18/18 11:25 77 20 123/90 99 11/18/18 11:15 75 20 146/79 H 100 11/18/18 11:05 36.5 C 94 H 20 143/99 H 99 11/18/18 07:04 36.7 C 65 16 135/85 98 11/17/18 23:10 36.6 C 66 16 107/71 96 11/17/18 15:26 36.9 C 60 18 120/66 98 11/17/18 11:55 36.6 C 54 L 16 113/74 100 Pain Intensity Right Upper Medial Abdomen: Pain Intensity: 6 Abdomen: Pain Intensity: 4 Transfer of Care Handoff Completed per policy Notes Mental Status: alert / awake / arousable Patient Amnestic to Procedure: Yes Nausea / Vomiting: adequately controlled Pain: adequately controlled Airway Patency, RR, SpO2: stable & adequate BP & HR: stable & adequate Hydration State: stable & adequate Anesthetic Complications: no major complications apparent and Pt Satisfied with anesthetic care
[2018-11-18] MEDS: ONDANSETRON INJ 2 MG/ML 2 ML VIAL IV PRN ×2 (12:00→18:21)
[2018-11-18] MEDS: DOCUSATE SODIUM 100 MG CAP PO SCH (12:17)
[2018-11-18] MEDS: FERROUS SULFATE 325 MG TAB PO SCH (12:18)
[2018-11-18] MEDS: PROPRANOLOL HCL 20 MG TAB PO SCH ×2 (12:18→20:45)
[2018-11-18] MEDS: LACTOBACILLUS ACIDOPHILUS (FLORANEX) TAB PO SCH (12:18)
[2018-11-18] MEDS: PANTOprazole 40 MG TAB PO SCH ×2 (12:18→20:45)
[2018-11-18] MEDS: OXYCODONE/ACETAMINOPHEN 5mg/325mg TAB PO PRN (14:30)
[2018-11-18] MEDS: PROMETHAZINE HCL 12.5 MG in SODIUM CHLORIDE 0.9% 50 ML IV PRN (19:16)
--- NOTE | 2018-11-19 08:04 | Surgery Progress Note ---
Date of Service November 19, 2018 Assessment & Plan (1) Cholelithiases: POD 3 lap palmer POD 1 EUS/ERCP doing better today clears for breakfast, advance later as matthew can shower maybe home today if ok with GI Subjective some nausea last night from jello/broth, feels better today Physical Exam Gastrointestinal (Abdomen): Inspection/Auscultation: + abdominal surgical incision (dry dressings); abdomen not distended Percussion/Palpation: abdomen soft Results & Data Vital Signs (Past 12 Hours) Vital Signs Temp Pulse Resp BP BP Pulse Ox 11/19/18 07:15 36.6 C 65 18 115/71 97 11/19/18 03:55 36.6 C 55 L 18 109/70 96 11/18/18 23:22 36.5 C 55 L 17 100/63 95 11/18/18 20:35 59 L 113/77 96 PG Care Time/CCT Total # of Minutes Spent Total Time Spent with Patient: Total time spent is greater than 50% in coordination of care (as documented) at patient's floor/unit and/or counseling patient: (1) Cholelithiases Biliary obstruction: without biliary obstruction Cholecystitis presence: without cholecystitis Cholelithiasis location: gallbladder Qualified Code(s): K80.20 - Calculus of gallbladder without cholecystitis without obstruction
[2018-11-19] MEDS ORDERED: CIPROFLOXACIN 500 MG TAB PO SCH (09:00)
[2018-11-19] MEDS: SODIUM CHLORIDE 0.9% 1000ML 1,000 ML IV SCH (09:13)
[2018-11-19] MEDS: LACTOBACILLUS ACIDOPHILUS (FLORANEX) TAB PO SCH (09:14)
[2018-11-19] MEDS: DOCUSATE SODIUM 100 MG CAP PO SCH (09:14)
[2018-11-19] MEDS: PANTOprazole 40 MG TAB PO SCH (09:15)
[2018-11-19] MEDS: PROPRANOLOL HCL 20 MG TAB PO SCH (09:15)
[2018-11-19] MEDS: FERROUS SULFATE 325 MG TAB PO SCH (09:15)
[2018-11-19 10:19] LABS: Appearance Urine Turbid (Clear); Bacteria Urine Automated 2+ (Negative); Blood Urine 3+ (Negative); Epithelial Cell Urine Auto >30 /lpf (0-5); Glucose Urine UA Negative (Negative); Ketones Urine Trace (Negative); Leukocyte Esterase Urine 2+ (Negative); Nitrite Urine Positive (Negative); Protein Urine 2+ (Negative); Specific Gravity Urine 1.022 (1.000-1.030); Urobilinogen Urine Negative (Negative); WBC Urine Automated >30 /hpf (0-5)
[2018-11-19 10:22] LABS: Color Urine Brown
[2018-11-19 10:27] LABS: Bilirubin Urine Negative (Negative); Ictotest Urine Negative (Negative)
[2018-11-19 10:29] LABS: RBC Urine Automated >30 /hpf (0-4)
--- NOTE | 2018-11-19 10:38 | Gastroenterology Progress Note ---
Date of Service November 19, 2018 Assessment & Plan (1) Cholelithiases: Patient appears to be doing well status post cholecystectomy and ERCP yesterday. I would suggest advancing the patient's diet as tolerated and perhaps consider discharge today.. KUB in 4 weeks to ensure passage of the pancreatic stent Please call with any questions Subjective The patient underwent ERCP yesterday for gallstone extraction. She appears to be doing well today and notes having minimal discomfort. She has been tolerating the liquid diet without any difficulties. Review of Systems Constitutional: no sweats and no malaise Eyes: no diplopia Respiratory: no change in sputum and no hemoptysis Cardiovascular: no chest pain with activity Gastrointestinal: no bloating and no nausea Genitourinary: no urinary frequency Physical Exam Neck: trachea midline, no thyromegaly Respiratory: normal respiratory effort Cardiovascular: Rate/Rhythm: regular rate Gastrointestinal (Abdomen): Inspection/Auscultation: abdomen normal to inspection Skin: no rashes, warm and dry Results & Data Vital Signs (Past 12 Hours) Vital Signs Temp Pulse Resp BP BP Pulse Ox 11/19/18 07:15 36.6 C 65 18 115/71 97 11/19/18 03:55 36.6 C 55 L 18 109/70 96 11/18/18 23:22 36.5 C 55 L 17 100/63 95 (1) Cholelithiases Biliary obstruction: without biliary obstruction Cholecystitis presence: without cholecystitis Cholelithiasis location: gallbladder Qualified Code(s): K80.20 - Calculus of gallbladder without cholecystitis without obstruction
--- NOTE | 2018-11-20 07:52 | Discharge Summary ---
Date of Service November 20, 2018 Admission HPI Per Admitting Provider This is a 43-year-old female who presented to the emergency room with pain centered in the epigastrium and right upper quadrant. It began at 5:00 last night. She had eaten just a small amount of baked potato. The pain is sharp. It radiates around to her back on occasion. Does not radiate into her shoulder. There are some reflux symptoms with it and she does have a history of reflux but she never has this kind of pain with it. She has nausea and had vomiting last night. She continues to have nausea. She has not had a change in her bowel habits. There is no melena or hematochezia. She denies dysuria and hematuria. She had one episode of discomfort like this about 5 years ago. At that time was also felt to be related to cholelithiasis but they did not opt for surgery at that time. Principal Diagnosis Epigastric/RUQ abdominal pain Discharge Data Allergies Allergy/AdvReac Type Severity Reaction Status Date / Time No Known Allergies Allergy Verified 06/23/18 10:59 Consultations 11/16/18 02:22 ED Decision to Admit Stat 11/17/18 07:44 Consult Gastroenterology Routine Procedures Performed Operation Date: 11/16/18 12:05 Actual Procedures p Laparoscopic Cholecystectomy with No Cholangiogram - Chelle Mcguire MD Operation Date: 11/18/18 07:30 Actual Procedures p Upper Endoscopic Ultrasonography, Esophagogastroduodenoscopy(Not Applicable) - Adalberto Ro s Endoscopic Retrograde Cholangiopancreatogram(Not Applicable) - Adalberto Ro Ordered Studies 11/15/18 23:55 US gallbladder Urgent 11/18/18 07:00 FL ERCP biliary ductal Routine 11/18/18 07:34 US upper EUS PACS images Routine Hospital Course (1) Cholelithiases: Patient was admitted to hospital from the ED and started on IV fluids, IV Morphine prn pain, IV Zofran prn nausea, and kept NPO. Patient was evaluated morning of 11/16/2018 and scheduled for laparoscopic cholecystectomy with Dr. Mcguire. Patient was having significant nausea without relief with IV Zofran therefore IV Phenergan was ordered which relieved her nausea. Patients t. bili improved at 0.8 but her LFTS elevated into the 200's. Patient underwent laparoscopic cholecystectomy in which she was found to have calculous cholecystitis. Patient tolerated procedure well and was transferred back to medical/surgical floor. Patient was evaluated on POD # 1 vitals stable, afebrile, post op pain moderate, similar to preop pain, + nausea, LFTS improved but T. bili elevated at 1.3. GI was therefore consulted for possible retained common bile duct stone. Patient was transitioned back to NPO incase of GI procedure. IV morphine and Phenergan was continued. Patient was scheduled for EUS possible ERCP on 11/17/2018 however did not undergo procedure until 11/18/18. Patient was found to have common bile duct stone and multiple gastric polyps which were biopsed on EUS. ERCP was performed and pancreatic stent placed. Patients diet was advanced to clear liquids and she was discharged home on 11/19/18. Total Time Total Time Spent Total Time Spent (In Minutes): 20 Total Time Includes: Examination of the Patient, Discharge Planning and Medication Reconciliation Discharge Plan Discharge Items Patient Disposition: Home - Self-Care Reason For Visit: BILIARY COLIC Discharge Diagnosis: Cholecystitis (inflammation of gallbladder) Gallstones Condition: Good Discharge Goals: Decrease discomfort Activity: Per 'Additional Instructions' section Non-emergency contact: Surgeon Call non-emergency contact if: your symptoms worsen, your pain is not controlled, your pain is concerning for you, you have a fever, your temperature is above 101, your wound has increased redness, your wound has increased drainage and your wound pain has increased Follow-up/Referrals: Pratik Macias MD [Primary Care Provider] - Diet: Low Fat Addtl Provider Instructions: No heavy lifting over 20 pounds for 3-4 weeks No strenuous activity until cleared by surgeon No submerging incisions underwater for 2 weeks (no bathing, swimming, or hot tubs). No driving while taking narcotic pain medication or until you are pain free You may shower on Tuesday. Sponge bath and wash hair in meantime. Remove outer dressings before showering and allow water to run over incisions and pat dry. Leave steri strips on incisions for 7 days from your surgery and then remove. Walking and light activity is encouraged daily to prevent blood clots from forming. You will be given prescription for narcotic pain medication for moderate to severe pain. Take as directed. This medication may cause drowsiness and constipation. You may take extra strength Tylenol or Ibuprofen as needed for mild pain -650 mg of Tylenol every 6 hours as needed - 600 mg of Ibuprofen every 6 hours as needed (Take with food) - Avoid Tylenol while taking Percocet as Percocet has Tylenol in it Follow-up in surgical office in 2 weeks, please call office at [phone] to make an appointment. Prescriptions: New oxycodone-acetaminophen 5-325 mg tablet 1 tab PO Q4H PRN (Reason: pain) Qty: 18 RF: 0 ciprofloxacin HCl [Cipro] 500 mg tablet 500 mg PO BID Qty: 10 RF: 0 Continued sennosides [senna] 8.6 mg Tablet 1 - 2 tab PO DAILY PRN (Reason: Constipation) RF: 0 metoclopramide HCl [Reglan] 10 mg Tablet 10 mg PO DAILY PRN (Reason: Nausea) RF: 0 omeprazole 20 mg Tablet,Delayed Release (Dr/Ec) 20 mg PO BID RF: 0 ondansetron 4 mg Film 4 mg PO Q8H PRN (Reason: Nausea) RF: 0 Probiotic and Acidophilus 300-250 million cell-mg Capsule 1 cap PO QAM RF: 0 propranolol 20 mg Tablet 20 mg PO BID RF: 0 ferrous sulfate 325 mg (65 mg iron) Tablet 325 mg PO DAILY RF: 0 docusate sodium [Colace] 100 mg Capsule 100 mg PO DAILY RF: 0 Stand-Alone Forms: Call Back Authorization, [facility], [facility] Discharge Orders: Discharge Order (Routine); Ordered 11/19/18 Ordered By: Homer Brock Admission Data Admit Date/Time: 11/16/18 02:44 Attending Provider: Waylon Dee Admit Provider: Waylon Dee Primary Care Provider: Pratik Macias Other Providers: Waylon Dee ; Stacie Kelly ; Neto Padilla ; Isabelle Faust ; Ramos Gunn ; Adalberto Ro ; Jamel Duran ; Caprice Puente ; John Parra ; Reinier Painter ; Pamela Nuñez ; Talia Gramajo ; Eufemia Jacobs ; Sujata Bower ; Henry Quick Service: Surgical Services Other Interventions: Discharge Summary Assessment (RN) Last Done: 11/19/18 10:33 Pending Studies at Discharge: Yes (Gallbladder pathology, will be reviewed at follow-up visit) DC Date/Time DO NOT enter until pt leaves facility: 11/19/18 12:16
== END 2018-11-19 12:16 | disposition home or self-care (01) ==
LOC: ED 21:57 → 3E 21:57
DX: K80.12 Calculus of gallbladder with acute and chronic cholecystitis without obstruction; K31.7 Polyp of stomach and duodenum; K80.50 Calculus of bile duct without cholangitis or cholecystitis without obstruction; Z68.43 Body mass index [BMI] 50.0-59.9, adult; E28.2 Polycystic ovarian syndrome; R74.8 Abnormal levels of other serum enzymes; E66.01 Morbid (severe) obesity due to excess calories; K21.9 Gastro-esophageal reflux disease without esophagitis; Z79.84 Long term (current) use of oral hypoglycemic drugs